=== PATIENT | female | born 1950 | race Two or more races ===

== ENCOUNTER 2020-11-10 01:41 | Inpatient (IN) | payer MEDICARE, MEDICAID ==
[~2020-11-10] VITALS: Ht 160 cm; Wt 68.0 kg
[~2020-11-10 01:41] MED LIST: PRILOSEC20 MG PO; VICODIN 5-5001 EACH PO
--- NOTE | 2020-11-10 02:00 | NUR ---
ED Nurse Note: patient came in ambulatory, AOx4, vitals stable, accompanied by family. Complaints of nausea, and abdominal pain, HX of gallbladder infections. Pt was informed to schedule surgery for removal but has not been able to sdchedule it yet
[2020-11-10 02:10] VITALS: BP 130/57
--- NOTE | 2020-11-10 02:10 | Emergency Room Report ---
History of Present Illness General Chief Complaint: Abdominal Pain Source: Patient Present Illness HPI 70-year-old female with history of hypertension, hyperlipidemia, cholelithiasis here with epigastric and right upper quadrant abdominal pain. Patient has had multiple bouts of biliary colic and read the recent past but pain is usually been controlled with [id number] pain medication. Patient has been taking Tylenol and Mylanta without any relief for the past several days. Pain is sharp in nature, located in the epigastric and right upper quadrant region, does not otherwise radiate. Patient has had vomiting and diarrhea for the past several days. No fevers, chills, chest pain, palpitations, shortness of breath, back pain, dysuria. Has vomited multiple times of the past few days nonbilious nonbloody. Allergies: Coded Allergies: No Known Allergies (Unverified , 09/26/12) COVID-19 Screening Contact w/high risk pt: No Experienced COVID-19 symptoms?: No COVID-19 Testing performed LINE REPAIRER TOWER: No Nursing Documentation-PMH Hx Hypertension: Yes Hx Gastrointestinal Problems: Yes - ULCER Review of Systems All Other Systems: negative except mentioned in HPI Physical Exam Vital Signs Date Time Temp Pulse Resp B/P (MAP) Pulse Ox O2 Delivery O2 Flow Rate FiO2 11/10/20 01:46 97.7 60 20 130/57 (81) 96 Room Air Sp02 EP Interpretation: reviewed, normal General Appearance: no apparent distress, alert, non-toxic Head: normocephalic, atraumatic Eyes: bilateral eye normal inspection, bilateral eye PERRL ENT: hearing grossly normal, normal pharynx, no angioedema, normal voice Neck: full range of motion, supple/symm/no masses Respiratory: chest non-tender, lungs clear, normal breath sounds, speaking full sentences Cardiovascular #1: regular rate, rhythm, no edema Cardiovascular #2: 2+ carotid (R), 2+ carotid (L), 2+ radial (R), 2+ radial (L), 2+ dorsalis pedis (R), 2+ dorsalis pedis (L) Gastrointestinal: normal bowel sounds, soft, non-distended, no guarding, no rebound, other - Epigastric and right upper quadrant tenderness on palpation. Negative Rovsing sign, negative Ruano sign Rectal: deferred Genitourinary: normal inspection, no CVA tenderness Musculoskeletal: back normal, normal range of motion, gait/station normal, non- tender Neurologic: alert, motor strength/tone normal, oriented x3, sensory intact, responsive, speech normal Psychiatric: judgement/insight normal, memory normal, mood/affect normal, no suicidal/homicidal ideation Lymphatic: no adenopathy Medical Decision Making Diagnostic Impression: Primary Impression: Cholecystitis ER Course EKG: NSR, no ischemia, intervals WNL. No ectopy. Rate 54 bpm Rhythm strip: patient monitored for arrhythmias - no malignant dysrhythmias, runs of PVCs, nor pauses noted Right upper quadrant ultrasound: Indication right upper quadrant abdominal pain. statistical technician report: Large obstructing gallstone. Gallbladder wall thickening and small amount of pericholecystic fluid. Normal CBD Laboratory Tests Test 11/10/20 02:11 White Blood Count 11.9 K/UL (4.8-10.8) H Red Blood Count 4.48 M/UL (4.20-5.40) Hemoglobin 12.7 G/DL (12.0-16.0) Hematocrit 39.2 % (37.0-47.0) Mean Corpuscular Volume 87 FL (80-99) Mean Corpuscular Hemoglobin 28.2 PG (27.0-31.0) Mean Corpuscular Hemoglobin Concent 32.3 G/DL (32.0-36.0) Red Cell Distribution Width 12.2 % (11.6-14.8) Platelet Count 212 K/UL (150-450) Mean Platelet Volume 7.9 FL (6.5-10.1) Neutrophils (%) (Auto) % (45.0-75.0) Lymphocytes (%) (Auto) % (20.0-45.0) Monocytes (%) (Auto) % (1.0-10.0) Eosinophils (%) (Auto) % (0.0-3.0) Basophils (%) (Auto) % (0.0-2.0) Urine Color Yellow Urine Appearance Clear Urine pH 8 (4.5-8.0) Urine Specific [place] 1.015 (1.005-1.035) Urine Protein 2+ (NEGATIVE) H Urine Glucose (UA) Negative (NEGATIVE) Urine Ketones 2+ (NEGATIVE) H Urine Blood 3+ (NEGATIVE) H Urine Nitrite Negative (NEGATIVE) Urine Bilirubin Negative (NEGATIVE) Urine Urobilinogen Normal MG/DL (0.0-1.0) Urine Leukocyte Esterase 1+ (NEGATIVE) H Urine RBC 2-4 /HPF (0 - 2) H Urine WBC 0-2 /HPF (0 - 2) Urine Squamous Epithelial Cells Few /LPF (NONE/OCC) Urine Bacteria Moderate /HPF (NONE) H Sodium Level 139 MMOL/L (136-145) Potassium Level 3.9 MMOL/L (3.5-5.1) Chloride Level 102 MMOL/L (98-107) Carbon Dioxide Level 28 MMOL/L (21-32) Anion Gap 9 mmol/L (5-15) Blood Urea Nitrogen 22 mg/dL (7-18) H Creatinine 1.0 MG/DL (0.55-1.30) Estimated Glomerular Filtration Rate 54.7 mL/min (>60) Glucose Level 188 MG/DL (74-106) H Calcium Level 9.7 MG/DL (8.5-10.1) Total Bilirubin 0.5 MG/DL (0.2-1.0) Aspartate Amino Transferase (AST) 20 U/L (15-37) Alanine Aminotransferase (ALT) 20 U/L (12-78) Alkaline Phosphatase 85 U/L (46-116) Troponin I 0.000 ng/mL (0.000-0.056) Total Protein 8.5 G/DL (6.4-8.2) H Albumin 4.1 G/DL (3.4-5.0) Globulin 4.4 g/dL Albumin/Globulin Ratio 0.9 (1.0-2.7) L Lipase 117 U/L (73-393) 70-year-old female with history of biliary colic here with worsening right upper quadrant abdominal pain. Patient normal vital signs in the emergency department. CBC revealed a leukocytosis of 11.9. She had normal LFTs and lipase. Urinalysis did show evidence of urinary tract infection. Right upper quadrant ultrasound showed a large obstructing stone and evidence of gallbladder wall thickening and some pericholecystic fluid. She had normal CBD diameter. Consistent with cholecystitis. She was given a dose of Zosyn in the emergency department. She received pain medication and felt much improved. Admitted to [facility]. Last Vital Signs Date Time Temp Pulse Resp B/P (MAP) Pulse Ox O2 Delivery O2 Flow Rate FiO2 11/10/20 01:46 97.7 60 20 130/57 (81) 96 Room Air Referrals: NON PHYSICIAN (PCP) Yvan Berman M.D. Nov 10, 2020 02:10
--- NOTE | 2020-11-10 02:11 | NUR ---
ED Nurse Note: blood and urine collected and sent to lab
[2020-11-10] MEDS ORDERED: Mylanta II UD 30ml ORAL ONE (02:15)
[2020-11-10] MEDS ORDERED: Lidocaine 2% Visc 15ml soln ORAL ONE (02:15)
[2020-11-10] MEDS ORDERED: Dicyclomine HCl 10mg/5ml oral soln ORAL ONE (02:15)
[2020-11-10 02:38] LABS: APPEARANCE,URINE CLEAR; BILIRUBIN, URINE NEGATIVE (NEGATIVE); GLUCOSE, URINE (UA) NEGATIVE (NEGATIVE); HEMATOCRIT 39.2 % (37.0-47.0); HEMOGLOBIN 12.7 G/DL (12.0-16.0); KETONES,URINE 2+ (NEGATIVE); LEUKOCYTE ESTERASE ,URINE 1+ (NEGATIVE); MEAN CORPUSCULAR VOLUME 87 FL (80-99); NITRITE,URINE NEGATIVE (NEGATIVE); PH,URINE 8 (4.5-8.0); PLATELET COUNT 212 K/UL (150-450); PROTEIN,URINE 2+ (NEGATIVE); RED BLOOD COUNT 4.48 M/UL (4.20-5.40); RED CELL DISTRIBUTION WIDTH 12.2 % (11.6-14.8); UROBILINOGEN,URINE NORMAL MG/DL (0.0-1.0); WHITE BLOOD COUNT 11.9 K/UL (4.8-10.8)
[2020-11-10 02:42] LABS: COLOR,URINE YELLOW
[2020-11-10 02:52] LABS: ALBUMIN 4.1 G/DL (3.4-5.0); ALBUMIN/GLOBULIN RATIO 0.9 (1.0-2.7); BILIRUBIN,TOTAL 0.5 MG/DL (0.2-1.0); CALCIUM 9.7 MG/DL (8.5-10.1); POTASSIUM 3.9 MMOL/L (3.5-5.1)
[2020-11-10] MEDS ORDERED: Piperacillin/Tazobactam 3.375 GM in NS 110 ML IVPB ONE (03:45)
--- NOTE | 2020-11-10 03:53 | Diagnostic Imaging Report ---
ADDENDUM - Added by Elizabeth Warner MD on 11/10/2020 3:56 AM (-08:00) EXAM: US Abdomen Complete CLINICAL HISTORY: PAIN TECHNIQUE: Real-time ultrasound of the abdomen with image documentation. COMPARISON: 2011 FINDINGS: Liver: No mass. No intrahepatic bile duct dilation. Gallbladder: Multiple small gallstones in the neck. Minimal wall thickening to 3.7 mm. No pericholecystic fluid. Negative Ruano's sign. Common bile duct: No stones. No dilation. Pancreas: Obscured. Kidneys: No stones. No solid mass. No hydronephrosis. Spleen: Unremarkable. Aorta: Not evaluated. Inferior vena cava: Not evaluated. IMPRESSION: Multiple small gallstones in the neck. Minimal wall thickening to 3.7 mm. No pericholecystic fluid. Negative Ruano's sign. EXAM: US Abdomen Complete CLINICAL HISTORY: PAIN TECHNIQUE: Real-time ultrasound of the abdomen with image documentation. COMPARISON: 2011 FINDINGS: Liver: No mass. No intrahepatic bile duct dilation. Gallbladder: Multiple small gallstones in the neck. Minimal wall thickening to 3.7 mm. No pericholecystic fluid. Negative Ruano's sign. Common bile duct: No stones. No dilation. Pancreas: Obscured. Kidneys: No stones. No solid mass. No hydronephrosis. Spleen: Unremarkable. Aorta: No aneurysm. Inferior vena cava: Unremarkable.
[2020-11-10 04:18] VITALS: BP 136/61
--- NOTE | 2020-11-10 04:50 | NUR ---
HAND-OFF: Report given to
--- NOTE | 2020-11-10 04:51 | NUR ---
TRANSFER TO FLOOR: Patient transferred to 415 as ordered, per MD . Report given to Tatyana. Belongings and medications given to Elly Machado. Family and or S/O informed of transfer.
--- NOTE | 2020-11-10 05:50 | NUR ---
NURSE NOTES: Admitted patient awake, alert, verbal, ambulatory, with stable vital signs. Awaiting orders from Dr. Ventura.
--- NOTE | 2020-11-10 07:06 | NUR ---
NURSE HAND-OFF: Important Events on Shift:[]Awaiting admitting orders Patient Status: [] Diet: [] Pending Orders: [] Pending Results/Labs:[] Pending MD notification:[] Latest Vital Signs: Temperature 97.8 , Pulse 62 , B/P 136 /61 , Respiratory Rate 20 , O2 SAT 96 , Room Air, O2 Flow Rate . Vital Sign Comment: [] Latest Martinez Fall Score: 35 Fall Risk: Medium Risk Safety Measures: Call light Within Reach, Bed Alarm Zone 2, Side Rails Side Rails x2, Bed position Low and Locked. Fall Precautions: Yellow Socks Report given to [].
--- NOTE | 2020-11-10 07:15 | NUR ---
NURSE NOTES: Received report from Beverley WOLF. Patient is awake, A&O x4, [place] speaking, no acute distress. Patient reports no pain. Received orders from Dr. Ventura, patient NPO except meds. IV asymptomatic and patent. On room air, no Sob. Call light in reach, bed alarm on, side rails up, bed in lowest position.
[2020-11-10 08:00] VITALS: BP 118/53
--- NOTE | 2020-11-10 08:53 | Consultation ---
History of Present Illness General Date patient seen: Nov 10, 2020 Chief Complaint: Present Illness Allergies: Coded Allergies: No Known Allergies (Unverified , 09/26/12) Medication History Scheduled Hydrocodone/Acetaminophen 5-500 (Vicodin 5-500), 1-2 TAB PO Q6H Omeprazole (Prilosec), 20 MG PO DAILY Patient History Healthcare decision maker Resuscitation status Advanced Directive on File Physical Exam Last 24 Hour Vital Signs Date Time Temp Pulse Resp B/P (MAP) Pulse Ox O2 Delivery O2 Flow Rate FiO2 11/10/20 05:05 Room Air 11/10/20 04:18 97.8 62 20 136/61 96 Room Air 11/10/20 02:10 97.7 20 130/57 96 Room Air 11/10/20 01:46 97.7 60 20 130/57 (81) 96 Room Air Intake and Output 11/09/20 11/10/20 19:00 07:00 Intake Total 0 ml Balance 0 ml Intake Oral 0 ml # Voids 2 # Bowel Movements 1 Laboratory Tests Test 11/10/20 02:11 White Blood Count 11.9 K/UL (4.8-10.8) H Red Blood Count 4.48 M/UL (4.20-5.40) Hemoglobin 12.7 G/DL (12.0-16.0) Hematocrit 39.2 % (37.0-47.0) Mean Corpuscular Volume 87 FL (80-99) Mean Corpuscular Hemoglobin 28.2 PG (27.0-31.0) Mean Corpuscular Hemoglobin Concent 32.3 G/DL (32.0-36.0) Red Cell Distribution Width 12.2 % (11.6-14.8) Platelet Count 212 K/UL (150-450) Mean Platelet Volume 7.9 FL (6.5-10.1) Neutrophils (%) (Auto) % (45.0-75.0) Lymphocytes (%) (Auto) % (20.0-45.0) Monocytes (%) (Auto) % (1.0-10.0) Eosinophils (%) (Auto) % (0.0-3.0) Basophils (%) (Auto) % (0.0-2.0) Urine Color Yellow Urine Appearance Clear Urine pH 8 (4.5-8.0) Urine Specific [place] 1.015 (1.005-1.035) Urine Protein 2+ (NEGATIVE) H Urine Glucose (UA) Negative (NEGATIVE) Urine Ketones 2+ (NEGATIVE) H Urine Blood 3+ (NEGATIVE) H Urine Nitrite Negative (NEGATIVE) Urine Bilirubin Negative (NEGATIVE) Urine Urobilinogen Normal MG/DL (0.0-1.0) Urine Leukocyte Esterase 1+ (NEGATIVE) H Urine RBC 2-4 /HPF (0 - 2) H Urine WBC 0-2 /HPF (0 - 2) Urine Squamous Epithelial Cells Few /LPF (NONE/OCC) Urine Bacteria Moderate /HPF (NONE) H Sodium Level 139 MMOL/L (136-145) Potassium Level 3.9 MMOL/L (3.5-5.1) Chloride Level 102 MMOL/L (98-107) Carbon Dioxide Level 28 MMOL/L (21-32) Anion Gap 9 mmol/L (5-15) Blood Urea Nitrogen 22 mg/dL (7-18) H Creatinine 1.0 MG/DL (0.55-1.30) Estimat Glomerular Filtration Rate 54.7 mL/min (>60) Glucose Level 188 MG/DL (74-106) H Calcium Level 9.7 MG/DL (8.5-10.1) Total Bilirubin 0.5 MG/DL (0.2-1.0) Aspartate Amino Transf (AST/SGOT) 20 U/L (15-37) Alanine Aminotransferase (ALT/SGPT) 20 U/L (12-78) Alkaline Phosphatase 85 U/L (46-116) Troponin I 0.000 ng/mL (0.000-0.056) Total Protein 8.5 G/DL (6.4-8.2) H Albumin 4.1 G/DL (3.4-5.0) Globulin 4.4 g/dL Albumin/Globulin Ratio 0.9 (1.0-2.7) L Lipase 117 U/L (73-393) Height (Feet): 5 Height (Inches): 3.00 Weight (Pounds): 150 Medications Current Medications Medications (Trade) Dose Ordered Sig/Ramy Route PRN Reason Start Time Stop Time Status Last Admin Dose Admin Acetaminophen (Tylenol) 500 mg Q4H PRN ORAL Mild Pain (Pain Scale 1-3) 11/10/20 09:00 12/10/20 08:59 UNV Assessment/Plan Assessment/Plan: (1) Abdominal pain (2) Cholecystitis (2) Gall stone Seen dictated David Lopez Nov 10, 2020 08:52
--- NOTE | 2020-11-10 09:05 | NUR ---
CASE MANAGEMENT:REVIEW 70 YR OLD FEMALE WALKED INTO ER CC: ABDOMINAL PAIN AND VOMITING SI: CHOLECYSTITIS 97.7 60 20 130/57 96% ON RA WBC+11.9 BUN+22 GLUCOSE+188 IS: 1L NS BOLUS IV ZOSYN IV ZOFRAN X1 GI COCKTAIL ABD US URINE CX : TO MED/SURG 4 EAST DCP: FROM HOME
--- NOTE | 2020-11-10 11:47 | Consultation ---
DATE OF CONSULTATION: 11/10/2020 CHIEF COMPLAINT: Abdominal pain. HISTORY OF PRESENT ILLNESS: This is a 70-year-old female presented to the hospital with complaint of epigastric abdominal pain. In the ER, the patient had abdominal ultrasound which showed evidence of gallstones, some gallbladder wall thickening suspicious for cholecystitis. PAST MEDICAL HISTORY: 1. Hypertension. 2. Hyperlipidemia. 3. Gallstones. 4. History of gastric ulcer. PAST SURGICAL HISTORY: None. ALLERGIES: No known drug allergies. MEDICATIONS: Please see medication reconciliation list. SOCIAL HISTORY: The patient denies any tobacco, alcohol, or drug abuse. FAMILY HISTORY: Noncontributory. REVIEW OF SYSTEMS: Consistent with epigastric abdominal pain with some nausea. PHYSICAL EXAMINATION: VITAL SIGNS: Temperature is 97.8, pule 62, respirations 20, blood pressure is 132/61. HEENT: Normocephalic and atraumatic. Sclerae anicteric. NECK: Supple. No evidence of obvious lymphadenopathy. CARDIOVASCULAR: Regular rate and rhythm. Plus S1-S2. LUNGS: Clear to auscultation bilaterally. ABDOMEN: Positive bowel sounds. Soft. There is minimal tenderness to palpation in the epigastric area. No rebound. No guarding No peritoneal sign. EXTREMITIES: No cyanosis, no clubbing, no edema. LABORATORY AND DIAGNOSTIC DATA: White count is 11.9, hemoglobin 12, hematocrit 39, platelet count is 212. Liver function grossly normal. ASSESSMENT AND PLAN: This is a 70-year-old female with epigastric abdominal pain, normal LFTs. Ultrasound showed evidence of gallstones, positive for gallstones causing abdominal pain. Plan to order HIDA scan. The patient is currently on antibiotics, Zosyn, we will continue. The patient needs surgical evaluation. I want to thank, Dr. Renetta Ventura for this kind referral. Donavan Brian M.D. DR: Chuy JOB#: [id number] CC: Renetta Ventura M.D.; Fax#: [phone]
[2020-11-10 12:00] VITALS: BP 120/63
[2020-11-10] MEDS ORDERED: Morphine Sulfate 2mg/ml Inj(IV/IM USE ONLY) IVP PRN (12:00)
--- NOTE | 2020-11-10 13:14 | Consultation ---
DATE OF CONSULTATION: 11/10/2020 PAIN MANAGEMENT CONSULTATION CONSULTING PHYSICIAN: Nu Rodriguez MD. REFERRING PHYSICIAN: Renetta Ventura MD. PHYSICIAN GYROSCOPIC INSTRUMENT MECHANIC: AYAH Mcgrath. CHIEF COMPLAINT: Abdominal pain. HISTORY OF PRESENT ILLNESS: This is a 70-year-old female, who is being seen on the Med/Surg floor of [facility] for initial pain management consultation. The patient was admitted under the care of Dr. Ventura due to complaints of abdominal pain, found to have cholelithiasis, biliary colic, which was uncontrolled with Tylenol and Mylanta at home, and was found to have a large gallstone and diagnosed with cholecystitis. At this time, the patient is comfortable in the bed, rating the pain at 2/10, waiting to be seen by surgeon and assistant technician. We were consulted so the patient would have adequate pain control while here in the hospital. PAST MEDICAL HISTORY: Hypertension, hyperlipidemia, stomach ulcers. SOCIAL HISTORY: No smoking tobacco, drinking alcohol, and IV drug abuse. ALLERGIES: No known drug allergies. MEDICATIONS: [place] and Prilosec. REVIEW OF SYSTEMS: Denies rash, fever, chills, sweating, dizziness, drowsiness, sore throat, or change in weight. No shortness of breath or chest pain. No nausea, vomiting, diarrhea, or blood in the stool. No dysuria. PHYSICAL EXAMINATION: GENERAL: Alert, awake, and oriented. VITAL SIGNS: Blood pressure 132/61, heart rate 62, oxygen saturation 96%, respirations 20, temperature 97.8 degrees Fahrenheit. HEENT: PERRLA. NECK: Range of motion is full in all directions. No tenderness to paracervical muscles. No adenopathy. LUNGS: Decreased breath sounds bilaterally. HEART: S1 and S2, regular. ABDOMEN: Tenderness to palpation. BACK: Range of motion is decreased in flexion and extension. EXTREMITIES: Upper and lower extremity range of motion is full in all directions. No cyanosis. No clubbing. No edema. Sensory is intact. Reflexes are not obtainable. No adenopathy. ASSESSMENT AND PLAN: This is a 70-year-old female with abdominal pain, cholecystitis, and gallstone. The patient will be started on Tylenol 500 mg tablet every 4 hours as needed for severe pain. The patient was discussed with Dr. Rodriguez and Dr. Rodriguez concurred. We will follow up with the patient. Thank you very much for the courtesy of this consultation. Nu Rodriguez M.D. AYAH Mcgrath DR: BARB JOB#: [id number] CC:
[2020-11-10] MEDS: Acetaminophen 500mg (ES) tab ORAL PRN (14:16)
--- NOTE | 2020-11-10 14:50 | Consultation ---
History of Present Illness General Date patient seen: Nov 10, 2020 Reason for Hospitalization: Abdominal Pain Present Illness HPI This is a pleasant 70-year-old female with history of hypertension, hyperlipidemia, cholelithiasis who presented with epigastric and right upper quadrant abdominal pain which is near generalized abd pain to her. Patient has had multiple bouts of biliary colic and read the recent past but pain is usually been controlled with [id number] pain medication. Patient has been taking Tylenol and Mylanta without any relief for the past several days. Pain is sharp in nature, located in the epigastric and right upper quadrant region, does not otherwise radiate. Patient has had vomiting and diarrhea for the past several days. No fevers, chills, chest pain, palpitations, shortness of breath, back pain, dysuria. Has vomited multiple times of the past few days nonbilious nonbloody. states almost 10 days of symptoms. wbc 11k. lft's okay. surgery called to evaluate Allergies: Coded Allergies: No Known Allergies (Unverified , 09/26/12) COVID-19 Screening Contact w/high risk pt: No Experienced COVID-19 symptoms?: No Medication History Scheduled Hydrocodone/Acetaminophen 5-500 (Vicodin 5-500), 1-2 TAB PO Q6H Omeprazole (Prilosec), 20 MG PO DAILY Patient History History Provided By: Patient, Medical Record, PMD Healthcare decision maker Resuscitation status Advanced Directive on File Past Medical/Surgical History Past Medical/Surgical History: (1) Cholecystitis Review of Systems Review of Symptoms General ROS: no weight loss or fever Psychological ROS: no depression or mood changes, no memory loss Ophthalmic ROS: no visual changes or eye irritation ENT ROS: no nasal congestion, hearing loss, dizziness Allergy and Immunology ROS: no allergic symptoms or urticaria Hematological and Lymphatic ROS: no swollen glands, unusual bleeding or bruising Endocrine ROS: no polyuria, polydipsia, weight changes, temperature intolerance Respiratory ROS: no cough, shortness of breath, or wheezing Cardiovascular ROS: no chest pain or dyspnea on exertion Gastrointestinal ROS: + abdominal pain, bright red blood in stool. Musculoskeletal ROS: no myalgias or arthralgias Neurological ROS: no TIA or stroke symptoms Dermatological ROS: no new or changing skin lesions, rashes or pruritis Physical Exam Physical Exam General appearance: alert, cooperative, no distress, appears stated age Head: Normocephalic, without obvious abnormality, atraumatic Eyes: conjunctivae/corneas clear. PERRL, EOM's intact. Fundi benign Throat: Lips, mucosa, and tongue normal. Teeth and gums normal Neck: supple, symmetrical, trachea midline, no adenopathy, thyroid: not enlarged, symmetric, no tenderness/mass/nodules, no carotid bruit and no JVD Lungs: clear to auscultation bilaterally Heart: regular rate and rhythm, S1, S2 normal, no murmur, click, rub or gallop Abdomen: soft, non-tender. Bowel sounds normal. No masses, no organomegaly Extremities: extremities normal, atraumatic, no cyanosis or edema Pulses: 2+ and symmetric Skin: Skin color, texture, turgor normal. No rashes or lesions Neurologic: Grossly normal Last 24 Hour Vital Signs Date Time Temp Pulse Resp B/P (MAP) Pulse Ox O2 Delivery O2 Flow Rate FiO2 11/10/20 12:00 98.8 87 20 120/63 (82) 97 11/10/20 09:00 Room Air 11/10/20 08:00 96.6 75 21 118/53 (74) 96 11/10/20 05:05 Room Air 11/10/20 04:18 97.8 62 20 136/61 96 Room Air 11/10/20 02:10 97.7 20 130/57 96 Room Air 11/10/20 01:46 97.7 60 20 130/57 (81) 96 Room Air Intake and Output 11/09/20 11/10/20 19:00 07:00 Intake Total 0 ml Balance 0 ml Intake Oral 0 ml # Voids 2 # Bowel Movements 1 Laboratory Tests Test 11/10/20 02:11 White Blood Count 11.9 K/UL (4.8-10.8) H Red Blood Count 4.48 M/UL (4.20-5.40) Hemoglobin 12.7 G/DL (12.0-16.0) Hematocrit 39.2 % (37.0-47.0) Mean Corpuscular Volume 87 FL (80-99) Mean Corpuscular Hemoglobin 28.2 PG (27.0-31.0) Mean Corpuscular Hemoglobin Concent 32.3 G/DL (32.0-36.0) Red Cell Distribution Width 12.2 % (11.6-14.8) Platelet Count 212 K/UL (150-450) Mean Platelet Volume 7.9 FL (6.5-10.1) Neutrophils (%) (Auto) % (45.0-75.0) Lymphocytes (%) (Auto) % (20.0-45.0) Monocytes (%) (Auto) % (1.0-10.0) Eosinophils (%) (Auto) % (0.0-3.0) Basophils (%) (Auto) % (0.0-2.0) Urine Color Yellow Urine Appearance Clear Urine pH 8 (4.5-8.0) Urine Specific [place] 1.015 (1.005-1.035) Urine Protein 2+ (NEGATIVE) H Urine Glucose (UA) Negative (NEGATIVE) Urine Ketones 2+ (NEGATIVE) H Urine Blood 3+ (NEGATIVE) H Urine Nitrite Negative (NEGATIVE) Urine Bilirubin Negative (NEGATIVE) Urine Urobilinogen Normal MG/DL (0.0-1.0) Urine Leukocyte Esterase 1+ (NEGATIVE) H Urine RBC 2-4 /HPF (0 - 2) H Urine WBC 0-2 /HPF (0 - 2) Urine Squamous Epithelial Cells Few /LPF (NONE/OCC) Urine Bacteria Moderate /HPF (NONE) H Sodium Level 139 MMOL/L (136-145) Potassium Level 3.9 MMOL/L (3.5-5.1) Chloride Level 102 MMOL/L (98-107) Carbon Dioxide Level 28 MMOL/L (21-32) Anion Gap 9 mmol/L (5-15) Blood Urea Nitrogen 22 mg/dL (7-18) H Creatinine 1.0 MG/DL (0.55-1.30) Estimat Glomerular Filtration Rate 54.7 mL/min (>60) Glucose Level 188 MG/DL (74-106) H Calcium Level 9.7 MG/DL (8.5-10.1) Total Bilirubin 0.5 MG/DL (0.2-1.0) Aspartate Amino Transf (AST/SGOT) 20 U/L (15-37) Alanine Aminotransferase (ALT/SGPT) 20 U/L (12-78) Alkaline Phosphatase 85 U/L (46-116) Troponin I 0.000 ng/mL (0.000-0.056) Total Protein 8.5 G/DL (6.4-8.2) H Albumin 4.1 G/DL (3.4-5.0) Globulin 4.4 g/dL Albumin/Globulin Ratio 0.9 (1.0-2.7) L Lipase 117 U/L (73-393) Height (Feet): 5 Height (Inches): 3.00 Weight (Pounds): 150 Medications Current Medications Medications (Trade) Dose Ordered Sig/Ramy Route PRN Reason Start Time Stop Time Status Last Admin Dose Admin Acetaminophen (Tylenol) 500 mg Q4H PRN ORAL Mild Pain (Pain Scale 1-3) 11/10/20 09:00 12/10/20 08:59 11/10/20 14:16 Ondansetron HCl (Zofran) 4 mg Q6H PRN IVP Nausea & Vomiting 11/10/20 09:00 12/10/20 08:59 Sodium Chloride 1,000 ml @ 60 mls/hr [id number] IV 11/10/20 09:00 12/10/20 08:59 11/10/20 09:37 Assessment/Plan Problem List: (1) Cholecystitis ICD Codes: K81.9 - Cholecystitis, unspecified SNOMED: [id number] (2) Abdominal pain Assessment & Plan: This is a 70-year-old female presenting with abdominal pain. States she has a history of biliary colic in the past and potential regino cystitis but has not had her gallbladder taken out. States she has epigastric upper quadrant and almost generalized abdominal pain for few days near 10 days now not getting better as it usually does on its own. History of exploratory laparotomy for a colonoscopy bowel perforation. Now states feels little bit better but still would like her gallbladder taken out potentially. Ultrasound reviewed cholelithiasis no pericholecystic fluid minimal wall thickening. No Ruano's. HIDA ordered and pending. Abdominal exam fairly benign. No acute surgical invention planned. Will await HIDA results. Will follow with examination and recommendations. Thank you Liver: No mass. No intrahepatic bile duct dilation. Gallbladder: Multiple small gallstones in the neck. Minimal wall thickening to 3.7 mm. No pericholecystic fluid. Negative Ruano's sign. Common bile duct: No stones. No dilation. Pancreas: Obscured. Kidneys: No stones. No solid mass. No hydronephrosis. Spleen: Unremarkable. Aorta: Not evaluated. Inferior vena cava: Not evaluated. IMPRESSION: Multiple small gallstones in the neck. Minimal wall thickening to 3.7 mm. No pericholecystic fluid. Negative Ruano's sign. ICD Codes: R10.9 - Unspecified abdominal pain SNOMED: [id number] Dhaval Collins Nov 10, 2020 14:50
--- NOTE | 2020-11-10 15:54 | Diagnostic Imaging Report ---
Indication: Reason For Exam: SCREEN Technique: Grayscale and duplex images of the bilateral lower extremity veins Comparison: None Findings: Bilaterally, grayscale and duplex images demonstrate no evidence of intraluminal thrombus. Normal phasic Doppler waveforms, demonstrating normal augmentation response and no evidence of valvular insufficiency. Greater saphenous vein(s) and tibial veins are patent. Normal compressibility. Impression: Negative for evidence of lower extremity deep venous thrombosis bilaterally
--- NOTE | 2020-11-10 15:57 | Diagnostic Imaging Report ---
Indications: Abdominal pain Technique: IV administration 6.3 mCi 99 M technetium Choletec. Serial images obtained over the abdomen for one hour Comparison: Abdominal sonogram of earlier the same day Findings: Prompt tracer uptake within the liver. Extrahepatic bile ducts are seen at for minutes. Excretion into the duodenum demonstrated at 19 minutes. Gallbladder visualized at 13 minutes. Impression: Negative
[2020-11-10 16:00] VITALS: BP 122/73
--- NOTE | 2020-11-10 16:59 | Consultation ---
DATE OF CONSULTATION: 11/10/2020 INFECTIOUS DISEASE CONSULT PRIMARY ATTENDING PHYSICIAN: Renetta Ventura M.D. REASON FOR CONSULT: Cholecystitis. HISTORY OF PRESENT ILLNESS: This is a 70-year-old female admitted today from home complaining of epigastric right upper quadrant pain. The patient has history of cholelithiasis and biliary colic and previously seen in [facility] in September 2012 because of biliary colic. PAST MEDICAL HISTORY: Significant for hypertension, hyperlipidemia, cholelithiasis. ALLERGIES: No known drug allergy. MEDICATIONS: Started on Zosyn, Zofran, sodium chloride, and Tylenol. SOCIAL HISTORY: , has 8 kids. No history of alcohol, drug abuse, or smoking. REVIEW OF SYSTEMS: No fever. No chills. No nausea. No vomiting. Abdominal pain at the present time is controlled. PHYSICAL EXAMINATION: VITAL SIGNS: Temperature is 98.8, pulse 87, blood pressure 120/63. GENERAL APPEARANCE: Seems to have normal weight. HEAD AND NECK: [place] conjunctivae. HEART: Normal rate. LUNGS: Clear. ABDOMEN: Soft, flat. EXTREMITIES: No edema. NEUROLOGIC: She is awake, alert, oriented x3. LABORATORY AND DIAGNOSTIC DATA: WBC 11.9, hemoglobin 12.7, hematocrit 39.2, platelets are 212. Sodium 139, potassium 3.9, chloride 102, bicarb 28, BUN 22, creatinine 1, glucose is 188. Abdominal ultrasound showed multiple small gallstones in the neck of the gallbladder, minimal wall thickening. Ruano sign was negative. IMPRESSION: Acute cholecystitis. The patient has a history of previous bouts of biliary colic and cholelithiasis. May have also chronic cholecystitis. Has hypertension hyperlipidemia. RECOMMENDATION: Continue with Zosyn. We will have a HIDA scan that was suggested by the surgeon. At the end of my exam, I thank Dr. Ventura for involving me in the care of this patient. Donavan Acharya M.D. DR: [place] JOB#: [id number] CC: GRACE
[2020-11-10] MEDS: Piperacillin/Tazobactam 3.375 GM in NS 110 ML IVPB SCH (17:13)
--- NOTE | 2020-11-10 19:20 | NUR ---
NURSE HAND-OFF: Important Events on Shift:[Nuclear scan done, negative ] Patient Status: [stable] Diet: [soft; NPO at midnight for CT abd pelvis WO contrast ] Pending Orders: [] Pending Results/Labs:[] Pending MD notification:[] Latest Vital Signs: Temperature 96.6 , Pulse 78 , B/P 122 /73 , Respiratory Rate 21 , O2 SAT 96 , Room Air, O2 Flow Rate . Vital Sign Comment: [] Latest Martinez Fall Score: 35 Fall Risk: Medium Risk Safety Measures: Call light Within Reach, Bed Alarm Zone 1, Side Rails Side Rails x3, Bed position Low and Locked. Fall Precautions: Yellow Socks Patient Fall Education Report given to [Alysha WOLF].
--- NOTE | 2020-11-10 19:30 | NUR ---
NURSE NOTES: Received patient in no apparent distress. A&OX4. IV site patent and intact. Remind patient NPO midnight, patient fully understood. Bed in lowest position. Call light within reach. Will continue to monitor.
[2020-11-10 20:00] VITALS: BP 118/55
--- NOTE | 2020-11-10 22:44 | History and Physical Report ---
DATE OF ADMISSION: 11/10/2020 The patient comes in because of vomiting, diarrhea, abdominal pain for 2 days, had fever, chills as well. The patient has history of exploratory laparotomy due to ruptured colon after colonoscopy years ago. The patient is found on the ultrasound to have large obstructing stone and gallbladder wall thickening as well as pericystic fluid, admitted for cholecystitis, abdominal pain, vomiting, diarrhea, and was also found to have UTI. The patient denies shortness of breath. Denies cough. Denies chest pain. Denies orthopnea. Denies rectal bleeding. PAST MEDICAL HISTORY: Hypertension, history of peptic ulcer disease, history of ruptured colon. PAST SURGICAL HISTORY: Status post laparotomy. FAMILY HISTORY: Noncontributory. SOCIAL HISTORY: Denies smoking. No history of drug abuse. Denies history of alcohol abuse. Lives at home with spouse. ALLERGIES: No known allergies. MEDICATIONS: Omeprazole 20 mg daily. REVIEW OF SYSTEMS: HEENT: Denies headaches. RESPIRATORY: Denies shortness of breath. Denies cough. CARDIOVASCULAR: Denies chest pain or orthopnea. GASTROINTESTINAL: Reports vomiting, diarrhea, abdominal pain for 2 days. No rectal bleeding. EXTREMITIES: Denies pain in lower extremities. CENTRAL NERVOUS SYSTEM: Denies change is speech pattern. Feels weak. PHYSICAL EXAMINATION: VITAL SIGNS: Temperature is 96.6, pulse is 75, blood pressure is 118/53. HEENT: PERRLA. NECK: Supple. No lymphadenopathy. CHEST: Clear to auscultation. CARDIOVASCULAR: Regular rate and rhythm. No murmurs or extra sounds. GASTROINTESTINAL: Epigastric and right upper quadrant tenderness. No rebound. Abdomen is soft. Positive bowel sounds. No organomegaly. EXTREMITIES: No edema. Reflexes on both sides. Moves all four extremities. Motor is intact in all four extremities. LABORATORY DATA: WBC of 11.9, hemoglobin 12.7, platelets of 212. Sodium 139, potassium 3.9, BUN of 22, creatinine 1. ASSESSMENT AND PLAN: Cholecystitis, abdominal pain, vomiting, diarrhea, UTI. I have asked basically Dr. Brian, Dr. Donavan Acharya, Dr. Rodriguez, and Dr. Collins to see the patient for the and pain management as well as acute cholecystitis as well as for abdominal pain and vomiting and diarrhea. Antibiotics per Dr. Donavan Acharya. If surgery is needed for cholecystectomy, we will defer that to Dr. Collins who has been already consulted. Renetta Ventura M.D. DR: JULIETA JOB#: [id number] CC:
[2020-11-11] VITALS: BP 112/51
--- NOTE | 2020-11-11 02:24 | Cardiology Report ---
APPROVED REPORT EKG Measurement Heart [id number] <Conclusion> Sinus bradycardia Otherwise normal ECG
[2020-11-11 04:00] VITALS: BP 118/51
[2020-11-11] MEDS: Piperacillin/Tazobactam 3.375 GM in NS 110 ML IVPB SCH ×3 (05:36→21:39)
[2020-11-11 08:00] VITALS: BP 125/57
--- NOTE | 2020-11-11 08:00 | NUR ---
NURSE NOTES: RN received report from Paige and patient in bed aao X4. Patient does not show s/s of respiratory distress on room air or pain. Bed in lowest position and locked. Call light within reach. Will continue to monitor.
--- NOTE | 2020-11-11 08:08 | NUR ---
NURSE HAND-OFF: Important Events on Shift: Kept NPO midnight Patient Status: Diet: NPO Pending Orders: Pending Results/Labs: Pending MD notification: Latest Vital Signs: Temperature 98.1 , Pulse 52 , B/P 118 /51 , Respiratory Rate 16 , O2 SAT 96 , Room Air, O2 Flow Rate . Vital Sign Comment: Latest Martinez Fall Score: 35 Fall Risk: Medium Risk Safety Measures: Call light Within Reach, Bed Alarm Zone 1, Side Rails Side Rails x3, Bed position Low and Locked. Fall Precautions: Yellow Socks Patient Fall Education Report given to Tamia WOLF.
--- NOTE | 2020-11-11 08:33 | General Progress Note ---
Subjective Date patient seen: Nov 11, 2020 Time patient seen: 07:15 - am Allergies: Coded Allergies: No Known Allergies (Unverified , 09/26/12) Subjective HISTORY OF PRESENT ILLNESS: This is a 70-year-old female, who is being seen on the Med/Surg floor of [facility]. Patient in bed no signs of pain or distress. No new complaints at this time. REVIEW OF SYSTEMS: Denies rash, fever, chills, sweating, dizziness, drowsiness, sore throat, or change in weight. No shortness of breath or chest pain. No nausea, vomiting, diarrhea, or blood in the stool. No dysuria. Objective Last 24 Hour Vital Signs Date Time Temp Pulse Resp B/P (MAP) Pulse Ox O2 Delivery O2 Flow Rate FiO2 11/11/20 04:00 98.1 52 16 118/51 (73) 96 11/11/20 00:00 98.2 53 16 112/51 (71) 97 11/10/20 21:00 Room Air 11/10/20 20:00 97.8 51 16 118/55 (76) 96 11/10/20 16:00 96.6 78 21 122/73 (89) 96 11/10/20 12:00 98.8 87 20 120/63 (82) 97 11/10/20 09:00 Room Air Intake and Output 11/10/20 11/11/20 19:00 07:00 Intake Total 200 ml 567.5 ml Output Total 1200 ml Balance -1000 ml 567.5 ml Intake Oral 140 ml IV Total 60 ml 567.5 ml Output Urine Total 1200 ml # Voids 3 2 Height (Feet): 5 Height (Inches): 3.00 Weight (Pounds): 150 Objective PHYSICAL EXAMINATION: GENERAL: Alert, awake, and oriented. LUNGS: Decreased breath sounds bilaterally. HEART: S1 and S2, regular. ABDOMEN: Tenderness to palpation. EXTREMITIES: No cyanosis. No clubbing. No edema. NEURO: No changes. Assessment/Plan Assessment/Plan: (1) Abdominal pain (2) Cholecystitis (2) Gall stone Patient to be continued on Tylenol D/w Dr. Rodriguez and he concurred. David Lopez Nov 11, 2020 08:33
[2020-11-11 10:19] LABS: BASOPHILS % (AUTO) 0.7 % (0.0-2.0); EOSINOPHILS % (AUTO) 1.3 % (0.0-3.0); HEMATOCRIT 34.7 % (37.0-47.0); HEMOGLOBIN 11.3 G/DL (12.0-16.0); LYMPHOCYTES % (AUTO) 27.4 % (20.0-45.0); MEAN CORPUSCULAR VOLUME 90 FL (80-99); MONOCYTES % (AUTO) 5.9 % (1.0-10.0); NEUTROPHILS % (AUTO) 64.6 % (45.0-75.0); PLATELET COUNT 168 K/UL (150-450); RED BLOOD COUNT 3.86 M/UL (4.20-5.40); RED CELL DISTRIBUTION WIDTH 12.6 % (11.6-14.8); WHITE BLOOD COUNT 4.7 K/UL (4.8-10.8)
[2020-11-11 10:39] LABS: ALANINE AMINOTRANSFERASE 18 U/L (12-78); ALBUMIN 3.2 G/DL (3.4-5.0); ALBUMIN/GLOBULIN RATIO 0.8 (1.0-2.7); ALKALINE PHOSPHATASE 68 U/L (46-116); ANION GAP 7 mmol/L (5-15); ASPARTATE AMINO TRANSFERASE 17 U/L (15-37); BILIRUBIN,TOTAL 0.4 MG/DL (0.2-1.0); BLOOD UREA NITROGEN 16 mg/dL (7-18); CALCIUM 8.3 MG/DL (8.5-10.1); CARBON DIOXIDE 27 MMOL/L (21-32); CHLORIDE 111 MMOL/L (98-107); CREATININE 0.8 MG/DL (0.55-1.30); POTASSIUM 4.1 MMOL/L (3.5-5.1); SODIUM 145 MMOL/L (136-145)
--- NOTE | 2020-11-11 11:30 | NUR ---
NURSE NOTES: Patient came back from CT scan. Patient stable, aao x4. No s/s of respiratory distress pain noted. Call light within reach, bed in lowest position and locked. Will continue to monitor.
--- NOTE | 2020-11-11 11:31 | General Progress Note ---
Subjective ROS Limited/Unobtainable: Yes Allergies: Coded Allergies: No Known Allergies (Unverified , 09/26/12) Objective Last 24 Hour Vital Signs Date Time Temp Pulse Resp B/P (MAP) Pulse Ox O2 Delivery O2 Flow Rate FiO2 11/11/20 08:00 98.2 50 18 125/57 (79) 98 11/11/20 04:00 98.1 52 16 118/51 (73) 96 11/11/20 00:00 98.2 53 16 112/51 (71) 97 11/10/20 21:00 Room Air 11/10/20 20:00 97.8 51 16 118/55 (76) 96 11/10/20 16:00 96.6 78 21 122/73 (89) 96 11/10/20 12:00 98.8 87 20 120/63 (82) 97 Intake and Output 11/10/20 11/11/20 19:00 07:00 Intake Total 200 ml 567.5 ml Output Total 1200 ml Balance -1000 ml 567.5 ml Intake Oral 140 ml IV Total 60 ml 567.5 ml Output Urine Total 1200 ml # Voids 3 2 Laboratory Tests 11/11/20 09:29: White Blood Count 4.7#L, Red Blood Count 3.86L, Hemoglobin 11.3L, Hematocrit 34.7L, Mean Corpuscular Volume 90, Mean Corpuscular Hemoglobin 29.4, Mean Corpuscular Hemoglobin Concent 32.7, Red Cell Distribution Width 12.6, Platelet Count 168, Mean Platelet Volume 7.3, Neutrophils (%) (Auto) 64.6, Lymphocytes (%) (Auto) 27.4, Monocytes (%) (Auto) 5.9, Eosinophils (%) (Auto) 1.3, Basophils (%) (Auto) 0.7, Sodium Level 145, Potassium Level 4.1, Chloride Level 111H, Carbon Dioxide Level 27, Anion Gap 7, Blood Urea Nitrogen 16, Creatinine 0.8, Estimat Glomerular Filtration Rate > 60, Glucose Level 89#, Calcium Level 8.3L, Total Bilirubin 0.4, Aspartate Amino Transf (AST/SGOT) 17, Alanine Aminotransferase (ALT/SGPT) 18, Alkaline Phosphatase 68, Total Protein 7.2, Albumin 3.2L, Globulin 4.0, Albumin/Globulin Ratio 0.8L Height (Feet): 5 Height (Inches): 3.00 Weight (Pounds): 150 General Appearance: no apparent distress EENT: normal ENT inspection Neck: supple Cardiovascular: normal rate Respiratory/Chest: decreased breath sounds Abdomen: normal bowel sounds, non tender, soft Extremities: non-tender Assessment/Plan Assessment/Plan: 1. Hypertension. 2. Hyperlipidemia. 3. Gallstones. 4. History of gastric ulcer. 5. anemia neg hida scan nornal LFTS fu surg recs add ppi consider EGd on Monday Donavan Brian MD Nov 11, 2020 11:31
[2020-11-11 12:00] VITALS: BP 130/62
--- NOTE | 2020-11-11 12:43 | Infectious Diseases Prog Note ---
Assessment/Plan Assessment/Plan IMPRESSION: Cholecystitis, HIDA scan;negative Biliary colic and cholelithiasis. Hypertension Hyperlipidemia. RECOMMENDATION: Continue with Zosyn. We will f/u abdominal Ct scan Plan by the surgeon. Subjective ROS Limited/Unobtainable: Yes Gastrointestinal/Abdominal: Reports: other - dark stools, mild abdominal pain Allergies: Coded Allergies: No Known Allergies (Unverified , 09/26/12) Objective Last 24 Hour Vital Signs Date Time Temp Pulse Resp B/P (MAP) Pulse Ox O2 Delivery O2 Flow Rate FiO2 11/11/20 08:00 98.2 50 18 125/57 (79) 98 11/11/20 04:00 98.1 52 16 118/51 (73) 96 11/11/20 00:00 98.2 53 16 112/51 (71) 97 11/10/20 21:00 Room Air 11/10/20 20:00 97.8 51 16 118/55 (76) 96 11/10/20 16:00 96.6 78 21 122/73 (89) 96 Height (Feet): 5 Height (Inches): 3.00 Weight (Pounds): 150 HEENT: mucous membranes moist Respiratory/Chest: lungs clear Cardiovascular: normal rate Abdomen: soft, non tender Extremities: no edema Neurologic/Psychiatric: alert, responsive Laboratory Tests Test 11/11/20 09:29 White Blood Count 4.7 K/UL (4.8-10.8) #L Red Blood Count 3.86 M/UL (4.20-5.40) L Hemoglobin 11.3 G/DL (12.0-16.0) L Hematocrit 34.7 % (37.0-47.0) L Mean Corpuscular Volume 90 FL (80-99) Mean Corpuscular Hemoglobin 29.4 PG (27.0-31.0) Mean Corpuscular Hemoglobin Concent 32.7 G/DL (32.0-36.0) Red Cell Distribution Width 12.6 % (11.6-14.8) Platelet Count 168 K/UL (150-450) Mean Platelet Volume 7.3 FL (6.5-10.1) Neutrophils (%) (Auto) 64.6 % (45.0-75.0) Lymphocytes (%) (Auto) 27.4 % (20.0-45.0) Monocytes (%) (Auto) 5.9 % (1.0-10.0) Eosinophils (%) (Auto) 1.3 % (0.0-3.0) Basophils (%) (Auto) 0.7 % (0.0-2.0) Sodium Level 145 MMOL/L (136-145) Potassium Level 4.1 MMOL/L (3.5-5.1) Chloride Level 111 MMOL/L (98-107) H Carbon Dioxide Level 27 MMOL/L (21-32) Anion Gap 7 mmol/L (5-15) Blood Urea Nitrogen 16 mg/dL (7-18) Creatinine 0.8 MG/DL (0.55-1.30) Estimat Glomerular Filtration Rate > 60 mL/min (>60) Glucose Level 89 MG/DL (74-106) # Calcium Level 8.3 MG/DL (8.5-10.1) L Total Bilirubin 0.4 MG/DL (0.2-1.0) Aspartate Amino Transf (AST/SGOT) 17 U/L (15-37) Alanine Aminotransferase (ALT/SGPT) 18 U/L (12-78) Alkaline Phosphatase 68 U/L (46-116) Total Protein 7.2 G/DL (6.4-8.2) Albumin 3.2 G/DL (3.4-5.0) L Globulin 4.0 g/dL Albumin/Globulin Ratio 0.8 (1.0-2.7) L Current Medications Medications (Trade) Dose Ordered Sig/Ramy Route PRN Reason Start Time Stop Time Status Last Admin Dose Admin Acetaminophen (Tylenol) 500 mg Q4H PRN ORAL Mild Pain (Pain Scale 1-3) 11/10/20 09:00 12/10/20 08:59 11/10/20 14:16 Ondansetron HCl (Zofran) 4 mg Q6H PRN IVP Nausea & Vomiting 11/10/20 09:00 12/10/20 08:59 Pantoprazole (Protonix) 40 mg DAILY ORAL 11/12/20 09:00 12/12/20 08:59 Piperacillin Sod/ Tazobactam Sod 3.375 gm/Sodium Chloride 110 ml @ 27.5 mls/hr EVERY 8 HOURS IVPB 11/10/20 17:00 11/15/20 16:59 11/11/20 05:36 Sodium Chloride 1,000 ml @ 60 mls/hr [id number] IV 11/10/20 09:00 12/10/20 08:59 11/11/20 01:06 Donavan Acharya MD Nov 11, 2020 12:43
--- NOTE | 2020-11-11 13:08 | Diagnostic Imaging Report ---
Indication: Abdominal pain Technique: Spiral acquisitions obtained through the abdomen and pelvis. Patient given oral contrast No IV contrast utilized, per referring physician request.. Multiplanar reconstructions were generated. Total dose length product 287 mGycm. CTDIvol(s) 5 mGy. Dose reduction achieved using automated exposure control Comparison: No comparison CT scans. Reference made to abdominal , hepatobiliary nuclear scan Findings: There is mild wall thickening of the gastric antrum and the first and second portions of the duodenum. The remainder of the stomach is unremarkable, as is the distal esophagus. There are colonic diverticula. There is no evidence of acute diverticulitis. Abundant stool and fluid are seen throughout the colon. There is a surgical anastomotic staple line in the mid to distal sigmoid colon. The appendix is normal. No small bowel distention. No small bowel wall thickening. Ingested contrast is seen throughout the entirety of the small bowel, and is seen as far distally as the ascending colon. No free or loculated intraperitoneal gas or fluid is evident. The The gallbladder contains gallstones. The gallbladder wall is not thickened and there is no biliary ductal dilatation. The lack of IV contrast limits assessment of the solid organs. The liver, pancreas, adrenals, kidneys are unremarkable. No renal or ureteral calculi, necrosis, nor hydroureter. The spleen demonstrates a subcentimeter low-attenuation lesion centrally which is too small to characterize. The uterus is enlarged, globular in shape. No adnexal mass. No discrete pelvic mass or adenopathy demonstrated. The included lung bases demonstrate scarring or atelectasis at the base of the lingula. There are dependent atelectatic changes at the right lung base. The bones demonstrate ankylosis of the right sacroiliac joint Impression: Mild wall thickening of the gastric antrum and first and second portions of the duodenum, could indicate gastritis/duodenitis or peptic ulcer disease Abundant mostly liquid stool and fluid throughout the colon, could indicate diarrheal illness Evidence of prior sigmoid colon resection Cholelithiasis, also previously reported Enlarged globular uterus, likely due to fibroids Ankylosis of the right sacroiliac joint. Could indicate prior sacroiliitis. Correlate with clinical history Subcentimeter low-attenuation splenic lesion, too small to characterize, most likely a cyst Basilar pulmonary parenchymal scarring and/or atelectasis The CT scanner at [facility] is accredited by the [employer] and the scans are performed using protocols designed to limit radiation exposure to as low as reasonably achievable to attain images of sufficient resolution adequate for diagnostic evaluation.
--- NOTE | 2020-11-11 13:44 | Surgery Progress Note ---
Surgery Progress Note Subjective Additional Comments ct noted gastric wall thickening noted no n/v labs improved gi input noted hida negative Objective Last 24 Hour Vital Signs Date Time Temp Pulse Resp B/P (MAP) Pulse Ox O2 Delivery O2 Flow Rate FiO2 11/11/20 08:00 98.2 50 18 125/57 (79) 98 11/11/20 04:00 98.1 52 16 118/51 (73) 96 11/11/20 00:00 98.2 53 16 112/51 (71) 97 11/10/20 21:00 Room Air 11/10/20 20:00 97.8 51 16 118/55 (76) 96 11/10/20 16:00 96.6 78 21 122/73 (89) 96 I&O Intake and Output 11/10/20 11/11/20 19:00 07:00 Intake Total 200 ml 567.5 ml Output Total 1200 ml Balance -1000 ml 567.5 ml Intake Oral 140 ml IV Total 60 ml 567.5 ml Output Urine Total 1200 ml # Voids 3 2 Cardiovascular: RSR Respiratory: clear Abdomen: soft, flat, non-tender, present bowel sounds Extremities: no edema, no tenderness, no cyanosis Laboratory Tests Test 11/11/20 09:29 White Blood Count 4.7 K/UL (4.8-10.8) #L Red Blood Count 3.86 M/UL (4.20-5.40) L Hemoglobin 11.3 G/DL (12.0-16.0) L Hematocrit 34.7 % (37.0-47.0) L Mean Corpuscular Volume 90 FL (80-99) Mean Corpuscular Hemoglobin 29.4 PG (27.0-31.0) Mean Corpuscular Hemoglobin Concent 32.7 G/DL (32.0-36.0) Red Cell Distribution Width 12.6 % (11.6-14.8) Platelet Count 168 K/UL (150-450) Mean Platelet Volume 7.3 FL (6.5-10.1) Neutrophils (%) (Auto) 64.6 % (45.0-75.0) Lymphocytes (%) (Auto) 27.4 % (20.0-45.0) Monocytes (%) (Auto) 5.9 % (1.0-10.0) Eosinophils (%) (Auto) 1.3 % (0.0-3.0) Basophils (%) (Auto) 0.7 % (0.0-2.0) Sodium Level 145 MMOL/L (136-145) Potassium Level 4.1 MMOL/L (3.5-5.1) Chloride Level 111 MMOL/L (98-107) H Carbon Dioxide Level 27 MMOL/L (21-32) Anion Gap 7 mmol/L (5-15) Blood Urea Nitrogen 16 mg/dL (7-18) Creatinine 0.8 MG/DL (0.55-1.30) Estimat Glomerular Filtration Rate > 60 mL/min (>60) Glucose Level 89 MG/DL (74-106) # Calcium Level 8.3 MG/DL (8.5-10.1) L Total Bilirubin 0.4 MG/DL (0.2-1.0) Aspartate Amino Transf (AST/SGOT) 17 U/L (15-37) Alanine Aminotransferase (ALT/SGPT) 18 U/L (12-78) Alkaline Phosphatase 68 U/L (46-116) Total Protein 7.2 G/DL (6.4-8.2) Albumin 3.2 G/DL (3.4-5.0) L Globulin 4.0 g/dL Albumin/Globulin Ratio 0.8 (1.0-2.7) L Plan Problems: (1) Cholecystitis Assessment & Plan: There is mild wall thickening of the gastric antrum and the first and second portions of the duodenum. The remainder of the stomach is unremarkable, as is the distal esophagus. There are colonic diverticula. There is no evidence of acute diverticulitis. Abundant stool and fluid are seen throughout the colon. There is a surgical anastomotic staple line in the mid to distal sigmoid colon. The appendix is normal. No small bowel distention. No small bowel wall thickening. Ingested contrast is seen throughout the entirety of the small bowel, and is seen as far distally as the ascending colon. No free or loculated intraperitoneal gas or fluid is evident. The The gallbladder contains gallstones. The gallbladder wall is not thickened and there is no biliary ductal dilatation. The lack of IV contrast limits assessment of the solid organs. The liver, pancreas, adrenals, kidneys are unremarkable. No renal or ureteral calculi, necrosis, nor hydroureter. The spleen demonstrates a subcentimeter low-attenuation lesion centrally which is too small to characterize. The uterus is enlarged, globular in shape. No adnexal mass. No discrete pelvic mass or adenopathy demonstrated. The included lung bases demonstrate scarring or atelectasis at the base of the lingula. There are dependent atelectatic changes at the right lung base. The bones demonstrate ankylosis of the right sacroiliac joint Impression: Mild wall thickening of the gastric antrum and first and second portions of the duodenum, could indicate gastritis/duodenitis or peptic ulcer disease Abundant mostly liquid stool and fluid throughout the colon, could indicate diarrheal illness Evidence of prior sigmoid colon resection Cholelithiasis, also previously reported Enlarged globular uterus, likely due to fibroids Ankylosis of the right sacroiliac joint. Could indicate prior sacroiliitis. Correlate with clinical history Subcentimeter low-attenuation splenic lesion, too small to characterize, most likely a cyst Basilar pulmonary parenchymal scarring and/or atelectasis Liver: No mass. No intrahepatic bile duct dilation. Gallbladder: Multiple small gallstones in the neck. Minimal wall thickening to 3.7 mm. No pericholecystic fluid. Negative Ruano's sign. Common bile duct: No stones. No dilation. Pancreas: Obscured. Kidneys: No stones. No solid mass. No hydronephrosis. Spleen: Unremarkable. Aorta: Not evaluated. Inferior vena cava: Not evaluated. IMPRESSION: Multiple small gallstones in the neck. Minimal wall thickening to 3.7 mm. No pericholecystic fluid. Negative Ruano's sign. (2) Abdominal pain Assessment & Plan: This is a 70-year-old female presenting with abdominal pain. States she has a history of biliary colic in the past and potential cholecystitis but has not had her gallbladder taken out. States she has epigastric upper quadrant and almost generalized abdominal pain for few days near 10 days now not getting better as it usually does on its own. History of exploratory laparotomy for a colonoscopy bowel perforation. Now states feels little bit better but still would like her gallbladder taken out potentially. Ultrasound reviewed cholelithiasis no pericholecystic fluid minimal wall thickening. No Ruano's. HIDA ordered and pending. Abdominal exam fairly benign. No acute surgical invention planned. Will await HIDA results. Will follow with examination and recommendations. Thank you negative hida ct noted gi input egd? no acute surgical intervention planned can consider outpatient elective cholecystectomy upon d/c okay to follow up with me in the office thank you Dhaval Collins Nov 11, 2020 13:44
[2020-11-11] MEDS ORDERED: MAGNESIUM OXID400 M1 ORAL (14:47)
[2020-11-11] MEDS ORDERED: ATORVASTATIN CA20 MG ORAL (14:47)
[2020-11-11] MEDS ORDERED: FOSAMAX70 MG ORAL (14:47)
[2020-11-11] MEDS ORDERED: HYDROCHLOROTH12.5 MG ORAL (14:47)
[2020-11-11] MEDS ORDERED: LISINOPRIL10 MG ORAL (14:47)
[2020-11-11] MEDS ORDERED: AMLODIPINE BESY10 MG ORAL (14:47)
[2020-11-11] MEDS ORDERED: ZOLOFT100 MG ORAL (14:47)
[2020-11-11 16:00] VITALS: BP 113/66
[2020-11-11] MEDS: Acetaminophen 500mg (ES) tab ORAL PRN (18:32)
--- NOTE | 2020-11-11 19:20 | NUR ---
NURSE NOTES: Patient states that her stool color is black and that she has diarrhea and abdominal pain whenever she eats. RN made Dr. Ventura, Dr. Collins, Dr. Brian and Dr. Acharya aware. RN received order to collect occult stool and change diet to clear liquid from Dr. Brian and CBC from Dr. Collins. RN verified the order one by one. RN changed the diet to clear liquid and will endorse to the next shift nurse to collect the stool next time she has the bowel movement.
--- NOTE | 2020-11-11 19:30 | NUR ---
NURSE HAND-OFF: Important Events on Shift: tarry stool Patient Status: stable Diet: clear liquid Pending Orders: Pending Results/Labs:occult blood Pending MD notification:stable Latest Vital Signs: Temperature 98.1 , Pulse 52 , B/P 113 /66 , Respiratory Rate 18 , O2 SAT 96 , Room Air, O2 Flow Rate . Vital Sign Comment: stable Latest Martinez Fall Score: 35 Fall Risk: Medium Risk Safety Measures: Call light Within Reach, Bed Alarm Zone 1, Side Rails Side Rails x3, Bed position Low and Locked. Fall Precautions: Yellow Socks Patient Fall Education Report given to LUCIANO Gibson.
--- NOTE | 2020-11-11 19:31 | NUR ---
NURSE NOTES: Received patient in no apparent distress. A&OX4. IV site patent and intact. Remind patient collect stool sample, patient fully understood. Bed in lowest position. Call light within reach. Will continue to monitor.
[2020-11-11 20:00] VITALS: BP 148/64
--- NOTE | 2020-11-11 21:30 | NUR ---
NURSE NOTES: OB stool collected.
--- NOTE | 2020-11-11 21:31 | General Progress Note ---
Subjective ROS Limited/Unobtainable: Yes Allergies: Coded Allergies: No Known Allergies (Unverified , 09/26/12) Objective Last 24 Hour Vital Signs Date Time Temp Pulse Resp B/P (MAP) Pulse Ox O2 Delivery O2 Flow Rate FiO2 11/11/20 20:00 97.9 51 18 148/64 (92) 96 11/11/20 19:02 98.1 11/11/20 16:00 98.1 52 18 113/66 (82) 96 11/11/20 12:00 97.8 58 18 130/62 (84) 98 11/11/20 09:00 Room Air 11/11/20 08:00 98.2 50 18 125/57 (79) 98 11/11/20 04:00 98.1 52 16 118/51 (73) 96 11/11/20 00:00 98.2 53 16 112/51 (71) 97 Intake and Output 11/10/20 11/11/20 19:00 07:00 Intake Total 200 ml 567.5 ml Output Total 1200 ml Balance -1000 ml 567.5 ml Intake Oral 140 ml IV Total 60 ml 567.5 ml Output Urine Total 1200 ml # Voids 3 2 Laboratory Tests 11/11/20 09:29: White Blood Count 4.7#L, Red Blood Count 3.86L, Hemoglobin 11.3L, Hematocrit 34.7L, Mean Corpuscular Volume 90, Mean Corpuscular Hemoglobin 29.4, Mean Corpuscular Hemoglobin Concent 32.7, Red Cell Distribution Width 12.6, Platelet Count 168, Mean Platelet Volume 7.3, Neutrophils (%) (Auto) 64.6, Lymphocytes (%) (Auto) 27.4, Monocytes (%) (Auto) 5.9, Eosinophils (%) (Auto) 1.3, Basophils (%) (Auto) 0.7, Sodium Level 145, Potassium Level 4.1, Chloride Level 111H, Carbon Dioxide Level 27, Anion Gap 7, Blood Urea Nitrogen 16, Creatinine 0.8, Estimat Glomerular Filtration Rate > 60, Glucose Level 89#, Calcium Level 8.3L, Total Bilirubin 0.4, Aspartate Amino Transf (AST/SGOT) 17, Alanine Aminotransferase (ALT/SGPT) 18, Alkaline Phosphatase 68, Total Protein 7.2, Albumin 3.2L, Globulin 4.0, Albumin/Globulin Ratio 0.8L Height (Feet): 5 Height (Inches): 3.00 Weight (Pounds): 150 Assessment/Plan Problem List: (1) Cholecystitis ICD Codes: K81.9 - Cholecystitis, unspecified SNOMED: 29093654 (2) Abdominal pain ICD Codes: R10.9 - Unspecified abdominal pain SNOMED: 94536940 Status: progressing Assessment/Plan: diarrhea cholecystitis afebrile abdominal pain need iv abx Renetta Ventura MD Nov 11, 2020 21:31
[2020-11-12] VITALS (7 sets, daily range): BP systolic 138–150; BP diastolic 55–66
[2020-11-12] MEDS: Piperacillin/Tazobactam 3.375 GM in NS 110 ML IVPB SCH (05:36)
--- NOTE | 2020-11-12 07:45 | NUR ---
NURSE NOTES: Report received from Paige RN, rounds made. Patient AOx4, calm. Turkish speaking. Respirations even/unlabored on RA. IV 1/2 NS at 60 ml/hr, to RFA, site asymptomatic. Patient up as tolerated to bathroom, gait steady. Denies pain, NV, SOB. On clear liquids, appetite good. Call light in reach, bed in lowest position, will continue to monitor.
--- NOTE | 2020-11-12 07:56 | NUR ---
NURSE HAND-OFF: Important Events on Shift: Patient Status: Diet: clear liquid Pending Orders: Pending Results/Labs: Pending MD notification: Latest Vital Signs: Temperature 98.4 , Pulse 51 , B/P 150 /58 , Respiratory Rate 20 , O2 SAT 96 , Room Air, O2 Flow Rate . Vital Sign Comment: Latest Martinez Fall Score: 35 Fall Risk: Medium Risk Safety Measures: Call light Within Reach, Bed Alarm Zone 1, Side Rails Side Rails x3, Bed position Low and Locked. Fall Precautions: Yellow Socks Patient Fall Education Report given to Brooke WOLF.
--- NOTE | 2020-11-12 08:26 | Surgery Progress Note ---
Surgery Progress Note Subjective Additional Comments afebrile, HD stable labs noted micro reviewed comfortable appearing no n/v Objective Last 24 Hour Vital Signs Date Time Temp Pulse Resp B/P (MAP) Pulse Ox O2 Delivery O2 Flow Rate FiO2 11/12/20 04:00 98.4 51 20 150/58 (88) 96 11/12/20 00:00 98.3 52 20 138/55 (82) 97 11/11/20 21:00 Room Air 11/11/20 20:00 97.9 51 18 148/64 (92) 96 11/11/20 19:02 98.1 11/11/20 16:00 98.1 52 18 113/66 (82) 96 11/11/20 12:00 97.8 58 18 130/62 (84) 98 11/11/20 09:00 Room Air I&O Intake and Output 11/11/20 11/12/20 19:00 07:00 Intake Total 1260 ml 497.5 ml Balance 1260 ml 497.5 ml Intake Oral 840 ml IV Total 420 ml 497.5 ml # Voids 4 3 # Bowel Movements 1 Cardiovascular: RSR Respiratory: clear Abdomen: soft, flat, non-tender, present bowel sounds, non-distended Extremities: no edema, no tenderness, no cyanosis Laboratory Tests Test 11/11/20 09:29 11/11/20 20:40 White Blood Count 4.7 K/UL (4.8-10.8) #L Red Blood Count 3.86 M/UL (4.20-5.40) L Hemoglobin 11.3 G/DL (12.0-16.0) L Hematocrit 34.7 % (37.0-47.0) L Mean Corpuscular Volume 90 FL (80-99) Mean Corpuscular Hemoglobin 29.4 PG (27.0-31.0) Mean Corpuscular Hemoglobin Concent 32.7 G/DL (32.0-36.0) Red Cell Distribution Width 12.6 % (11.6-14.8) Platelet Count 168 K/UL (150-450) Mean Platelet Volume 7.3 FL (6.5-10.1) Neutrophils (%) (Auto) 64.6 % (45.0-75.0) Lymphocytes (%) (Auto) 27.4 % (20.0-45.0) Monocytes (%) (Auto) 5.9 % (1.0-10.0) Eosinophils (%) (Auto) 1.3 % (0.0-3.0) Basophils (%) (Auto) 0.7 % (0.0-2.0) Sodium Level 145 MMOL/L (136-145) Potassium Level 4.1 MMOL/L (3.5-5.1) Chloride Level 111 MMOL/L (98-107) H Carbon Dioxide Level 27 MMOL/L (21-32) Anion Gap 7 mmol/L (5-15) Blood Urea Nitrogen 16 mg/dL (7-18) Creatinine 0.8 MG/DL (0.55-1.30) Estimat Glomerular Filtration Rate > 60 mL/min (>60) Glucose Level 89 MG/DL (74-106) # Calcium Level 8.3 MG/DL (8.5-10.1) L Total Bilirubin 0.4 MG/DL (0.2-1.0) Aspartate Amino Transf (AST/SGOT) 17 U/L (15-37) Alanine Aminotransferase (ALT/SGPT) 18 U/L (12-78) Alkaline Phosphatase 68 U/L (46-116) Total Protein 7.2 G/DL (6.4-8.2) Albumin 3.2 G/DL (3.4-5.0) L Globulin 4.0 g/dL Albumin/Globulin Ratio 0.8 (1.0-2.7) L Stool Occult Blood Pending Plan Problems: (1) Cholecystitis Assessment & Plan: There is mild wall thickening of the gastric antrum and the first and second portions of the duodenum. The remainder of the stomach is unremarkable, as is the distal esophagus. There are colonic diverticula. There is no evidence of acute diverticulitis. Abundant stool and fluid are seen throughout the colon. There is a surgical anastomotic staple line in the mid to distal sigmoid colon. The a ppendix is normal. No small bowel distention. No small bowel wall thickening. Ingested contrast is seen throughout the entirety of the small bowel, and is seen as far distally as the ascending colon. No free or loculated intraperitoneal gas or fluid is kayleigh dent. The The gallbladder contains gallstones. The gallbladder wall is not thickened and there is no biliary ductal dilatation. The lack of IV contrast limits assessment of the solid organs. The liver, pancreas, adrenals, kidneys are unremarkable. No renal or ureteral calculi, necrosis, nor hydroureter. The spleen demonstrates a subcentimeter low-attenuation lesion centrally which is too small to characterize. The uterus is enlarged, globular in shape. No adnexal mass. No discrete pelvic mass or adenopathy demonstrated. The included lung bases demonstrate scarring or atelectasis at the base of the lingula. There are dependent atelectatic changes at the right lung base. The bones demonstrate ankylosis of the right sacroiliac joint Impression: Mild wall thickening of the gastric antrum and first and second portions of the duodenum, could indicate gastritis/duodenitis or peptic ulcer disease Abundant mostly liquid stool and fluid throughout the colon, could indicate diarrheal illness Evidence of prior sigmoid colon resection Cholelithiasis, also previously reported Enlarged globular uterus, likely due to fibroids Ankylosis of the right sacroiliac joint. Could indicate prior sacroiliitis. Correlate with clinical history Subcentimeter low-attenuation splenic lesion, too small to characterize, most likely a cyst Basilar pulmonary parenchymal scarring and/or atelectasis Liver: No mass. No intrahepatic bile duct dilation. Gallbladder: Multiple small gallstones in the neck. Minimal wall thickening to 3.7 mm. No pericholecystic fluid. Negative Ruano's sign. Common bile duct: No stones. No dilation. Pancreas: Obscured. Kidneys: No stones. No solid mass. No hydronephrosis. Spleen: Unremarkable. Aorta: Not evaluated. Inferior vena cava: Not evaluated. IMPRESSION: Multiple small gallstones in the neck. Minimal wall thickening to 3.7 mm. No pericholecystic fluid. Negative Ruano's sign. (2) Abdominal pain Assessment & Plan: This is a 70-year-old female presenting with abdominal pain. States she has a history of biliary colic in the past and potential cholecystitis but has not had her gallbladder taken out. States she has epigastric upper quadrant and almost generalized abdominal pain for few days near 10 days now not getting better as it usually does on its own. History of exploratory laparotomy for a colonoscopy bowel perforation. Now states feels little bit better but still would like her gallbladder taken out potentially. Ultrasound reviewed cholelithiasis no pericholecystic fluid minimal wall thickening. No Ruano's. HIDA ordered and pending. Abdominal exam fairly benign. No acute surgical invention planned. Will await HIDA results. Will follow with examination and recommendations. Thank you negative hida ct noted gi input egd? no acute surgical intervention planned can consider outpatient elective cholecystectomy upon d/c okay to follow up with me in the office thank you Dhaval Collins Nov 12, 2020 08:26
--- NOTE | 2020-11-12 08:35 | General Progress Note ---
Subjective Date patient seen: Nov 12, 2020 Time patient seen: 07:00 - am Allergies: Coded Allergies: No Known Allergies (Unverified , 09/26/12) Subjective HISTORY OF PRESENT ILLNESS: This is a 70-year-old female, who is being seen on the Med/Surg floor of [facility]. Patient showing no signs of pain or distress. Pain is tolerated on the Tylenol. No new complaints at this time. REVIEW OF SYSTEMS: Denies rash, fever, chills, sweating, dizziness, drowsiness, sore throat, or change in weight. No shortness of breath or chest pain. No nausea, vomiting, diarrhea, or blood in the stool. No dysuria. Objective Last 24 Hour Vital Signs Date Time Temp Pulse Resp B/P (MAP) Pulse Ox O2 Delivery O2 Flow Rate FiO2 11/12/20 04:00 98.4 51 20 150/58 (88) 96 11/12/20 00:00 98.3 52 20 138/55 (82) 97 11/11/20 21:00 Room Air 11/11/20 20:00 97.9 51 18 148/64 (92) 96 11/11/20 19:02 98.1 11/11/20 16:00 98.1 52 18 113/66 (82) 96 11/11/20 12:00 97.8 58 18 130/62 (84) 98 11/11/20 09:00 Room Air Intake and Output 11/11/20 11/12/20 19:00 07:00 Intake Total 1260 ml 497.5 ml Balance 1260 ml 497.5 ml Intake Oral 840 ml IV Total 420 ml 497.5 ml # Voids 4 3 # Bowel Movements 1 Laboratory Tests 11/11/20 09:29: White Blood Count 4.7#L, Red Blood Count 3.86L, Hemoglobin 11.3L, Hematocrit 34.7L, Mean Corpuscular Volume 90, Mean Corpuscular Hemoglobin 29.4, Mean Corpuscular Hemoglobin Concent 32.7, Red Cell Distribution Width 12.6, Platelet Count 168, Mean Platelet Volume 7.3, Neutrophils (%) (Auto) 64.6, Lymphocytes (%) (Auto) 27.4, Monocytes (%) (Auto) 5.9, Eosinophils (%) (Auto) 1.3, Basophils (%) (Auto) 0.7, Sodium Level 145, Potassium Level 4.1, Chloride Level 111H, Carbon Dioxide Level 27, Anion Gap 7, Blood Urea Nitrogen 16, Creatinine 0.8, Estimat Glomerular Filtration Rate > 60, Glucose Level 89#, Calcium Level 8.3L, Total Bilirubin 0.4, Aspartate Amino Transf (AST/SGOT) 17, Alanine Aminotransferase (ALT/SGPT) 18, Alkaline Phosphatase 68, Total Protein 7.2, Albumin 3.2L, Globulin 4.0, Albumin/Globulin Ratio 0.8L 11/11/20 20:40: Stool Occult Blood [Pending] Height (Feet): 5 Height (Inches): 3.00 Weight (Pounds): 150 Objective PHYSICAL EXAMINATION: GENERAL: Alert, awake, and oriented. LUNGS: Decreased breath sounds bilaterally. HEART: S1 and S2, regular. ABDOMEN: Tenderness to palpation. EXTREMITIES: No cyanosis. No clubbing. No edema. NEURO: No changes. Assessment/Plan Status: progressing Assessment/Plan: (1) Abdominal pain (2) Cholecystitis (2) Gall stone Patient to be continued on Tylenol D/w Dr. Rodriguez and he concurred. David Lopez Nov 12, 2020 08:35
[2020-11-12 09:50] LABS: BASOPHILS % (AUTO) 0.9 % (0.0-2.0); EOSINOPHILS % (AUTO) 1.1 % (0.0-3.0); HEMATOCRIT 34.4 % (37.0-47.0); LYMPHOCYTES % (AUTO) 27.8 % (20.0-45.0); MEAN CORPUSCULAR VOLUME 89 FL (80-99); MONOCYTES % (AUTO) 8.2 % (1.0-10.0); NEUTROPHILS % (AUTO) 61.9 % (45.0-75.0); PLATELET COUNT 163 K/UL (150-450); RED BLOOD COUNT 3.86 M/UL (4.20-5.40); RED CELL DISTRIBUTION WIDTH 12.7 % (11.6-14.8); WHITE BLOOD COUNT 4.3 K/UL (4.8-10.8)
[2020-11-12 10:37] LABS: ALANINE AMINOTRANSFERASE 18 U/L (12-78); ALBUMIN 3.2 G/DL (3.4-5.0); ALBUMIN/GLOBULIN RATIO 0.8 (1.0-2.7); ALKALINE PHOSPHATASE 64 U/L (46-116); ANION GAP 7 mmol/L (5-15); ASPARTATE AMINO TRANSFERASE 15 U/L (15-37); BILIRUBIN,TOTAL 0.4 MG/DL (0.2-1.0); BLOOD UREA NITROGEN 10 mg/dL (7-18); CALCIUM 8.5 MG/DL (8.5-10.1); CARBON DIOXIDE 28 MMOL/L (21-32); CHLORIDE 110 MMOL/L (98-107); CREATININE 0.8 MG/DL (0.55-1.30); POTASSIUM 3.6 MMOL/L (3.5-5.1); SODIUM 145 MMOL/L (136-145)
--- NOTE | 2020-11-12 11:24 | NUR ---
NURSE NOTES: Dr. Brian notified of stool OB positive.
--- NOTE | 2020-11-12 12:19 | NUR ---
NURSE NOTES: COVID specimen obtained, sent to lab.
--- NOTE | 2020-11-12 12:35 | Infectious Diseases Prog Note ---
Assessment/Plan Assessment/Plan IMPRESSION: Cholecystitis, HIDA scan;negative Biliary colic and cholelithiasis. Hypertension Hyperlipidemia. Gastritis/ duodenitis RECOMMENDATION: Change Zosyn to Rocephin & Flagyl Elective cholecystectomy Plan by the GI Subjective ROS Limited/Unobtainable: No Constitutional: Reports: no symptoms Respiratory: Reports: no symptoms Gastrointestinal/Abdominal: Reports: no symptoms Genitourinary: Reports: no symptoms Allergies: Coded Allergies: No Known Allergies (Unverified , 09/26/12) Objective Last 24 Hour Vital Signs Date Time Temp Pulse Resp B/P (MAP) Pulse Ox O2 Delivery O2 Flow Rate FiO2 11/12/20 04:00 98.4 51 20 150/58 (88) 96 11/12/20 00:00 98.3 52 20 138/55 (82) 97 11/11/20 21:00 Room Air 11/11/20 20:00 97.9 51 18 148/64 (92) 96 11/11/20 19:02 98.1 11/11/20 16:00 98.1 52 18 113/66 (82) 96 Height (Feet): 5 Height (Inches): 3.00 Weight (Pounds): 150 HEENT: mucous membranes moist Respiratory/Chest: lungs clear Cardiovascular: normal rate Abdomen: soft, non tender Extremities: no edema Neurologic/Psychiatric: alert, responsive Microbiology Date/Time Source Procedure Growth Status 11/10/20 02:11 Urine,Clean Catch Urine Culture - Preliminary NO GROWTH Resulted Laboratory Tests Test 11/11/20 20:40 11/12/20 09:05 Stool Occult Blood Positive (NEGATIVE) White Blood Count 4.3 K/UL (4.8-10.8) L Red Blood Count 3.86 M/UL (4.20-5.40) L Hemoglobin 11.0 G/DL (12.0-16.0) L Hematocrit 34.4 % (37.0-47.0) L Mean Corpuscular Volume 89 FL (80-99) Mean Corpuscular Hemoglobin 28.6 PG (27.0-31.0) Mean Corpuscular Hemoglobin Concent 32.1 G/DL (32.0-36.0) Red Cell Distribution Width 12.7 % (11.6-14.8) Platelet Count 163 K/UL (150-450) Mean Platelet Volume 7.7 FL (6.5-10.1) Neutrophils (%) (Auto) 61.9 % (45.0-75.0) Lymphocytes (%) (Auto) 27.8 % (20.0-45.0) Monocytes (%) (Auto) 8.2 % (1.0-10.0) Eosinophils (%) (Auto) 1.1 % (0.0-3.0) Basophils (%) (Auto) 0.9 % (0.0-2.0) Sodium Level 145 MMOL/L (136-145) Potassium Level 3.6 MMOL/L (3.5-5.1) Chloride Level 110 MMOL/L (98-107) H Carbon Dioxide Level 28 MMOL/L (21-32) Anion Gap 7 mmol/L (5-15) Blood Urea Nitrogen 10 mg/dL (7-18) Creatinine 0.8 MG/DL (0.55-1.30) Estimat Glomerular Filtration Rate > 60 mL/min (>60) Glucose Level 114 MG/DL (74-106) H Calcium Level 8.5 MG/DL (8.5-10.1) Total Bilirubin 0.4 MG/DL (0.2-1.0) Aspartate Amino Transf (AST/SGOT) 15 U/L (15-37) Alanine Aminotransferase (ALT/SGPT) 18 U/L (12-78) Alkaline Phosphatase 64 U/L (46-116) Total Protein 7.2 G/DL (6.4-8.2) Albumin 3.2 G/DL (3.4-5.0) L Globulin 4.0 g/dL Albumin/Globulin Ratio 0.8 (1.0-2.7) L Current Medications Medications (Trade) Dose Ordered Sig/Ramy Route PRN Reason Start Time Stop Time Status Last Admin Dose Admin Acetaminophen (Tylenol) 500 mg Q4H PRN ORAL Mild Pain (Pain Scale 1-3) 11/10/20 09:00 12/10/20 08:59 11/11/20 18:32 Ondansetron HCl (Zofran) 4 mg Q6H PRN IVP Nausea & Vomiting 11/10/20 09:00 12/10/20 08:59 Pantoprazole (Protonix) 40 mg DAILY ORAL 11/12/20 09:00 12/12/20 08:59 11/12/20 09:50 Piperacillin Sod/ Tazobactam Sod 3.375 gm/Sodium Chloride 110 ml @ 27.5 mls/hr EVERY 8 HOURS IVPB 11/10/20 17:00 11/15/20 16:59 11/12/20 05:36 Sodium Chloride 1,000 ml @ 60 mls/hr [id number] IV 11/10/20 09:00 12/10/20 08:59 11/11/20 18:31 Donavan Acharya MD Nov 12, 2020 12:35
--- NOTE | 2020-11-12 14:11 | NUR ---
NURSE NOTES: Dr. Ventura notified of HR 49 (rechecked apical 49), BP 148/63 and 139/65. Patient is not on any cardiac or blood pressure medications. Patient is asymptomatic. Orders to transfer patient to TELE. Carolyn CHAUDHARY notified of above. Will update patient and daughter.
--- NOTE | 2020-11-12 14:26 | General Progress Note ---
Subjective ROS Limited/Unobtainable: Yes Allergies: Coded Allergies: No Known Allergies (Unverified , 09/26/12) Objective Last 24 Hour Vital Signs Date Time Temp Pulse Resp B/P (MAP) Pulse Ox O2 Delivery O2 Flow Rate FiO2 11/12/20 04:00 98.4 51 20 150/58 (88) 96 11/12/20 00:00 98.3 52 20 138/55 (82) 97 11/11/20 21:00 Room Air 11/11/20 20:00 97.9 51 18 148/64 (92) 96 11/11/20 19:02 98.1 11/11/20 16:00 98.1 52 18 113/66 (82) 96 Intake and Output 11/11/20 11/12/20 19:00 07:00 Intake Total 1260 ml 497.5 ml Balance 1260 ml 497.5 ml Intake Oral 840 ml IV Total 420 ml 497.5 ml # Voids 4 3 # Bowel Movements 1 Laboratory Tests 11/11/20 20:40: Stool Occult Blood Positive 11/12/20 09:05: White Blood Count 4.3L, Red Blood Count 3.86L, Hemoglobin 11.0L, Hematocrit 34.4L, Mean Corpuscular Volume 89, Mean Corpuscular Hemoglobin 28.6, Mean Corpuscular Hemoglobin Concent 32.1, Red Cell Distribution Width 12.7, Platelet Count 163, Mean Platelet Volume 7.7, Neutrophils (%) (Auto) 61.9, Lymphocytes (%) (Auto) 27.8, Monocytes (%) (Auto) 8.2, Eosinophils (%) (Auto) 1.1, Basophils (%) (Auto) 0.9, Sodium Level 145, Potassium Level 3.6, Chloride Level 110H, Carbon Dioxide Level 28, Anion Gap 7, Blood Urea Nitrogen 10, Creatinine 0.8, Estimat Glomerular Filtration Rate > 60, Glucose Level 114H, Calcium Level 8.5, Total Bilirubin 0.4, Aspartate Amino Transf (AST/SGOT) 15, Alanine Aminotransferase (ALT/SGPT) 18, Alkaline Phosphatase 64, Total Protein 7.2, Albumin 3.2L, Globulin 4.0, Albumin/Globulin Ratio 0.8L Height (Feet): 5 Height (Inches): 3.00 Weight (Pounds): 150 General Appearance: no apparent distress EENT: normal ENT inspection Neck: supple Cardiovascular: normal rate Respiratory/Chest: decreased breath sounds Abdomen: normal bowel sounds, non tender, soft Extremities: non-tender Assessment/Plan Status: progressing Assessment/Plan: 1. Hypertension. 2. Hyperlipidemia. 3. Gallstones. 4. History of gastric ulcer. 5. anemia neg hida scan nornal LFTS fu surg recs add ppi stool ob positive plan EGd tomorrow Donavan Brian MD Nov 12, 2020 14:26
[2020-11-12] MEDS: cefTRIAXone 1 GM in D5W 55 ML IVPB SCH (14:33)
[2020-11-12] MEDS: metroNIDAZOLE 500mg tab ORAL SCH ×2 (14:34→21:54)
--- NOTE | 2020-11-12 15:52 | NUR ---
NURSE NOTES: Dr. Brian notified that patient is Vietnamese speaking and requires receiving manager for EGD procedure instructions/indication, provided daughter number, Dr. Brian will call daughter. RN called daughter to update on patient current status, plans for EGD and transfer to TELE, verbalized understanding, daughter will update patient.
--- NOTE | 2020-11-12 15:53 | NUR ---
CASE MANAGEMENT:REVIEW 11/12/20 SI: ABDOMINAL PAIN. CHOLECYSTITIS 98.9 49 18 139/65 98% ON RA H/H-11.0/34.4 IS: FLAGYL PO Q8HRS IV ROCEPHIN Q24 PROTONIX PO QD IVF@60/HR : MED/SURG STATUS DCP: FROM HOME PLAN: EGD TOMORROW
--- NOTE | 2020-11-12 16:20 | NUR ---
NURSE NOTES: Patient transferred to via bed on RA, in stable condition. All belongings, labs, vitals, skin status, diet (NPO at [facility]) reviewed with receiving RNGhislaine. IV to RFA as ordered, site asymptomatic. Endorsed EGD consent (provided during report) still needs patient's signature after Dr. Arevalo discusses with patient's daughter. Endorsed patient is PUI (contact/droplet isolation), COVID results pending.
--- NOTE | 2020-11-12 16:36 | NUR ---
NURSE NOTES: Received patient from , transferred to bed. IV line intact and patent. Skin intact. Ambulatory with steady gait. Pleasant disposition. Belongings accounted for. On Clear liquid diet then NPO post midnight for EGD tomorrow, Dr Brian still to explain procedure prior to securing consent. manufacturing accountant placed. HOB elevated. Bed locked in low position. Call light within reach. Will continue plan of care.
--- NOTE | 2020-11-12 19:26 | NUR ---
NURSE NOTES: Received report from LUCIANO MAX. Pt in bed, A/O x4, verbally responsive and able to make needs known, sinhala speaking with few vincentian. On room air, tolerating and saturating well @ 97%. Denies any pain/ discomfort at the moment. Iv sites R forearm #22, intact, patent and flushed well. Safety measures in place, bed in lowest positioned and locked, call light within reach. Will continue to monitor and plan of care.
--- NOTE | 2020-11-12 19:40 | NUR ---
NURSE HAND-OFF REPORT: Important Events on Shift: consent for EGD secured in chart. Requesting EGD to be done early, Dr Brian made aware, left message, awaiting response. Patient Status: alert, ambulatory with steady gait Diet: NPO post midnight Pending Orders: EGD Pending Results/Labs: Pending MD notification: Latest Vital Signs: Temperature 99.1 , Pulse 45 , B/P 142 /60 , Respiratory Rate 18 , O2 SAT 99 , Room Air, O2 Flow Rate . Vital Sign Comment: EKG Rhythm: Sinus Bradycardia Rhythm change?: N MD Notified?: - MD Response: Latest Martinez Fall Score: 20 Fall Risk: Low Risk Safety Measures: Call light Within Reach, Bed Alarm Zone 1, Side Rails Side Rails x3, Bed position Low and Locked. Fall Precautions: Yellow Socks Patient Fall Education Report given to Ronan RN.
--- NOTE | 2020-11-12 20:42 | General Progress Note ---
Subjective ROS Limited/Unobtainable: Yes Allergies: Coded Allergies: No Known Allergies (Unverified , 09/26/12) Objective Last 24 Hour Vital Signs Date Time Temp Pulse Resp B/P (MAP) Pulse Ox O2 Delivery O2 Flow Rate FiO2 11/12/20 17:07 45 11/12/20 16:36 99.1 51 18 142/60 (87) 99 11/12/20 16:00 97.5 49 18 138/66 (90) 98 11/12/20 14:10 49 11/12/20 12:00 98.9 49 18 139/65 (89) 98 11/12/20 09:00 Room Air 11/12/20 08:00 97.8 49 18 148/63 (91) 96 11/12/20 04:00 98.4 51 20 150/58 (88) 96 11/12/20 00:00 98.3 52 20 138/55 (82) 97 11/11/20 21:00 Room Air Intake and Output 11/11/20 11/12/20 19:00 07:00 Intake Total 1260 ml 557.5 ml Balance 1260 ml 557.5 ml Intake Oral 840 ml IV Total 420 ml 557.5 ml # Voids 4 3 # Bowel Movements 1 Laboratory Tests 11/12/20 09:05: White Blood Count 4.3L, Red Blood Count 3.86L, Hemoglobin 11.0L, Hematocrit 34.4L, Mean Corpuscular Volume 89, Mean Corpuscular Hemoglobin 28.6, Mean Corpuscular Hemoglobin Concent 32.1, Red Cell Distribution Width 12.7, Platelet Count 163, Mean Platelet Volume 7.7, Neutrophils (%) (Auto) 61.9, Lymphocytes (%) (Auto) 27.8, Monocytes (%) (Auto) 8.2, Eosinophils (%) (Auto) 1.1, Basophils (%) (Auto) 0.9, Sodium Level 145, Potassium Level 3.6, Chloride Level 110H, Carbon Dioxide Level 28, Anion Gap 7, Blood Urea Nitrogen 10, Creatinine 0.8, Estimat Glomerular Filtration Rate > 60, Glucose Level 114H, Calcium Level 8.5, Total Bilirubin 0.4, Aspartate Amino Transf (AST/SGOT) 15, Alanine Aminotransferase (ALT/SGPT) 18, Alkaline Phosphatase 64, Total Protein 7.2, Albumin 3.2L, Globulin 4.0, Albumin/Globulin Ratio 0.8L Height (Feet): 5 Height (Inches): 3.00 Weight (Pounds): 150 Assessment/Plan Problem List: (1) Cholecystitis ICD Codes: K81.9 - Cholecystitis, unspecified SNOMED: 88306601 (2) Abdominal pain ICD Codes: R10.9 - Unspecified abdominal pain SNOMED: 24879694 Status: progressing Assessment/Plan: cholycystitis needs to go to snf for continuation of iv abx abdomin is soft abdominal pain need iv abx Renetta Ventura MD Nov 12, 2020 20:42
[2020-11-13] VITALS: BP 144/73
--- NOTE | 2020-11-13 | NUR ---
NURSE NOTES: Pt in bed, awake. In no apparent cardiac and respiratory distress noted. Denies any pain or discomfort at the moment. Reminded pt about being NPO and verbalized understanding on the process. Pt able to turn and reposition self. Will continue to monitor and plan of care.
[2020-11-13 04:00] VITALS: BP 144/68
[2020-11-13] MEDS: metroNIDAZOLE 500mg tab ORAL SCH ×2 (06:03→14:27)
--- NOTE | 2020-11-13 07:30 | NUR ---
NURSE NOTES: Received report from LUCIANO Rubio. Patient observed to be asleep, with HOB elevated. Currently on 3LNC patient showing no s/sx of SOB/Distress, no c/o any pain or discomfort. Patient currently on NPO for swallow eval. Patient on contact and droplet isolation (+) covid. Patient with 2 iv sites RFA 20g and LFA 20G both lines inplace, intact and patent running NS @50CC. Bed placed on lowest and locked, call light placed within reach and will continue to monitor for any changes in patient's condition.
--- NOTE | 2020-11-13 07:30 | NUR ---
NURSE NOTES: Received report from LUCIANO Desir. Patient observed to be awake, alert, and oriented x4. Uzbek speaking. Currently on orin, air no s/sx of sob/distress, no c/o any pain or discomfort. Patient on contact and droplet isolation for PUI COVID. On npo for scheduled egd, consent obtained previous shift. Patient with iv site located on RFA 22 running 1/2 ns @ [address] intact and dry. Bed placed on lowest and locked, call light placed within reach and will continue to monitor for any changes in condition.
--- NOTE | 2020-11-13 07:39 | NUR ---
NURSE HAND-OFF REPORT: Important Events on Shift: NPO for EGD Patient Status: Stable Diet: NPO Pending Orders: Pending Results/Labs: Pending MD notification: Latest Vital Signs: Temperature 97.5 , Pulse 42 , B/P 144 /68 , Respiratory Rate 18 , O2 SAT 98 , Room Air, O2 Flow Rate . Vital Sign Comment: Stable EKG Rhythm: Sinus Bradycardia Rhythm change?: N MD Notified?: - MD Response: Latest Martinez Fall Score: 20 Fall Risk: Low Risk Safety Measures: Call light Within Reach, Bed Alarm Zone 1, Side Rails Side Rails x3, Bed position Low and Locked. Fall Precautions: Yellow Socks Patient Fall Education Report given to Gillian Jara RN.
[2020-11-13 08:00] VITALS: BP 147/59
--- NOTE | 2020-11-13 08:00 | NUR ---
NURSE NOTES: Received order from Dr. Ventura for patient to be discharged to [facility]. D/C all hosp meds and continue home meds. Continue IV Rocephin x 5days. Orders noted and carried out.
--- NOTE | 2020-11-13 08:14 | Anethesia Preoperative Eval ---
Anesthesia Pre-op PMH/ROS General Date of Evaluation: Nov 13, 2020 Anesthesiologist: Noble ASA Score: ASA 3 Mallampati Score Class I : Soft palate, uvula, fauces, pillars visible Class II: Soft palate, uvula, fauces visible Class III: Soft palate, base of uvula visible Class IV: Only hard plate visible Mallampati Classification: Class II Surgeon: Roc Diagnosis: Ob + stools Surgical Procedure: EGD Anesthesia History: none Family History: no anesthesia problems Allergies: Coded Allergies: No Known Allergies (Unverified , 09/26/12) Medications: see eMAR Patient NPO?: Yes NPO Date: Nov 13, 2020 NPO Time: 00:00 Past Medical History Cardiovascular: Reports: HTN; Denies: CAD, ME, valve dz, arrhythmia, other Pulmonary: Denies: asthma, COPD, CANDIE, other Gastrointestinal/Genitourinary: Reports: GERD, other - gallstones; Denies: CRI, ESRD Neurologic/Psychiatric: Reports: dementia; Denies: CVA, depression/anxiety, TIA, other Endocrine: Denies: DM, hypothyroidism, steroids, other HEENT: Denies: cataract (L), cataract (R), glaucoma, [place] (L), [place] (R), other Hematology/Immune: Denies: anemia, DVT, bleeding disorder, other Musculoskeletal/Integumentary: Reports: OA; Denies: RA, DJD, DDD, edema, other Anesthesia Pre-op Phys. Exam Physician Exam Last Vital Signs Date Time Temp Pulse Resp B/P (MAP) Pulse Ox O2 Delivery O2 Flow Rate FiO2 11/13/20 04:00 97.5 42 18 144/68 (93) 98 11/12/20 21:00 Room Air Constitutional: NAD Cardiovascular: RRR Respiratory: CTA Airway Exam Mallampati Score: Class II MO: full ROM: full Anesthesia Pre-op A/P Labs Hematology Test 11/12/20 09:05 White Blood Count 4.3 K/UL (4.8-10.8) L Red Blood Count 3.86 M/UL (4.20-5.40) L Hemoglobin 11.0 G/DL (12.0-16.0) L Hematocrit 34.4 % (37.0-47.0) L Mean Corpuscular Volume 89 FL (80-99) Mean Corpuscular Hemoglobin 28.6 PG (27.0-31.0) Mean Corpuscular Hemoglobin Concent 32.1 G/DL (32.0-36.0) Red Cell Distribution Width 12.7 % (11.6-14.8) Platelet Count 163 K/UL (150-450) Mean Platelet Volume 7.7 FL (6.5-10.1) Neutrophils (%) (Auto) 61.9 % (45.0-75.0) Lymphocytes (%) (Auto) 27.8 % (20.0-45.0) Monocytes (%) (Auto) 8.2 % (1.0-10.0) Eosinophils (%) (Auto) 1.1 % (0.0-3.0) Basophils (%) (Auto) 0.9 % (0.0-2.0) Chemistry Test 11/12/20 09:05 Sodium Level 145 MMOL/L (136-145) Potassium Level 3.6 MMOL/L (3.5-5.1) Chloride Level 110 MMOL/L (98-107) H Carbon Dioxide Level 28 MMOL/L (21-32) Anion Gap 7 mmol/L (5-15) Blood Urea Nitrogen 10 mg/dL (7-18) Creatinine 0.8 MG/DL (0.55-1.30) Estimat Glomerular Filtration Rate > 60 mL/min (>60) Glucose Level 114 MG/DL (74-106) H Calcium Level 8.5 MG/DL (8.5-10.1) Total Bilirubin 0.4 MG/DL (0.2-1.0) Aspartate Amino Transf (AST/SGOT) 15 U/L (15-37) Alanine Aminotransferase (ALT/SGPT) 18 U/L (12-78) Alkaline Phosphatase 64 U/L (46-116) Total Protein 7.2 G/DL (6.4-8.2) Albumin 3.2 G/DL (3.4-5.0) L Globulin 4.0 g/dL Albumin/Globulin Ratio 0.8 (1.0-2.7) L Studies Pre-op Studies: EKG - sr Risk Assessment & Plan Assessment: ASA III Plan: GA Status Change Before Surgery: No Pre-Antibiotics Drug: N/A Manasa Dickey MD Nov 13, 2020 08:14
--- NOTE | 2020-11-13 08:46 | General Progress Note ---
Subjective Date patient seen: Nov 13, 2020 Time patient seen: 07:15 - am Allergies: Coded Allergies: No Known Allergies (Unverified , 09/26/12) Subjective HISTORY OF PRESENT ILLNESS: This is a 70-year-old female, who is being seen on the Tele floor of [facility]. Patient in bed and denies pain has no new complaints at this time. REVIEW OF SYSTEMS: Denies rash, fever, chills, sweating, dizziness, drowsiness, sore throat, or change in weight. No shortness of breath or chest pain. No nausea, vomiting, diarrhea, or blood in the stool. No dysuria. Objective Last 24 Hour Vital Signs Date Time Temp Pulse Resp B/P (MAP) Pulse Ox O2 Delivery O2 Flow Rate FiO2 11/13/20 04:00 97.5 42 18 144/68 (93) 98 11/13/20 03:40 43 11/13/20 00:00 98.2 58 18 144/73 (96) 96 11/12/20 23:37 45 11/12/20 21:00 Room Air 11/12/20 20:00 97.9 58 18 147/60 (89) 99 11/12/20 19:37 46 11/12/20 17:07 45 11/12/20 16:36 99.1 51 18 142/60 (87) 99 11/12/20 16:00 97.5 49 18 138/66 (90) 98 11/12/20 14:10 49 11/12/20 12:00 98.9 49 18 139/65 (89) 98 11/12/20 09:00 Room Air Intake and Output 11/12/20 11/13/20 19:00 07:00 Intake Total 1380 ml Balance 1380 ml Intake Oral 840 ml IV Total 540 ml # Voids 2 3 # Bowel Movements 1 Laboratory Tests 11/12/20 09:05: White Blood Count 4.3L, Red Blood Count 3.86L, Hemoglobin 11.0L, Hematocrit 34.4L, Mean Corpuscular Volume 89, Mean Corpuscular Hemoglobin 28.6, Mean Corpuscular Hemoglobin Concent 32.1, Red Cell Distribution Width 12.7, Platelet Count 163, Mean Platelet Volume 7.7, Neutrophils (%) (Auto) 61.9, Lymphocytes (%) (Auto) 27.8, Monocytes (%) (Auto) 8.2, Eosinophils (%) (Auto) 1.1, Basophils (%) (Auto) 0.9, Sodium Level 145, Potassium Level 3.6, Chloride Level 110H, Carbon Dioxide Level 28, Anion Gap 7, Blood Urea Nitrogen 10, Creatinine 0.8, Estimat Glomerular Filtration Rate > 60, Glucose Level 114H, Calcium Level 8.5, Total Bilirubin 0.4, Aspartate Amino Transf (AST/SGOT) 15, Alanine Aminotransferase (ALT/SGPT) 18, Alkaline Phosphatase 64, Total Protein 7.2, Albumin 3.2L, Globulin 4.0, Albumin/Globulin Ratio 0.8L Height (Feet): 5 Height (Inches): 3.00 Weight (Pounds): 150 Objective PHYSICAL EXAMINATION: GENERAL: Alert, awake, and oriented. LUNGS: Decreased breath sounds bilaterally. HEART: S1 and S2, regular. ABDOMEN: Tenderness to palpation. EXTREMITIES: No cyanosis. No clubbing. No edema. NEURO: No changes. Assessment/Plan Status: progressing Assessment/Plan: (1) Abdominal pain (2) Cholecystitis (2) Gall stone Patient to be continued on Tylenol D/w Dr. Rodriguez and he concurred. David Lopez Nov 13, 2020 08:46
--- NOTE | 2020-11-13 09:00 | NUR ---
NURSE NOTES: EGD cancelled. Patient to be d/c to snf
[2020-11-13 09:04] LABS: BASOPHILS % (AUTO) 0.7 % (0.0-2.0); EOSINOPHILS % (AUTO) 0.9 % (0.0-3.0); HEMATOCRIT 34.9 % (37.0-47.0); HEMOGLOBIN 11.5 G/DL (12.0-16.0); MEAN CORPUSCULAR VOLUME 88 FL (80-99); MONOCYTES % (AUTO) 7.6 % (1.0-10.0); NEUTROPHILS % (AUTO) 65.8 % (45.0-75.0); PLATELET COUNT 179 K/UL (150-450); RED BLOOD COUNT 3.99 M/UL (4.20-5.40); RED CELL DISTRIBUTION WIDTH 12.1 % (11.6-14.8); WHITE BLOOD COUNT 4.8 K/UL (4.8-10.8)
[2020-11-13 09:18] LABS: ANION GAP 7 mmol/L (5-15); BLOOD UREA NITROGEN 9 mg/dL (7-18); CALCIUM 8.7 MG/DL (8.5-10.1); CARBON DIOXIDE 28 MMOL/L (21-32); CHLORIDE 109 MMOL/L (98-107); CREATININE 0.7 MG/DL (0.55-1.30); POTASSIUM 3.4 MMOL/L (3.5-5.1); SODIUM 144 MMOL/L (136-145)
[2020-11-13 09:21] LABS: ALANINE AMINOTRANSFERASE 20 U/L (12-78); ALBUMIN 3.3 G/DL (3.4-5.0); ALBUMIN/GLOBULIN RATIO 0.8 (1.0-2.7); ALKALINE PHOSPHATASE 64 U/L (46-116); ASPARTATE AMINO TRANSFERASE 18 U/L (15-37); BILIRUBIN,TOTAL 0.5 MG/DL (0.2-1.0)
[2020-11-13 12:00] VITALS: BP 136/84
--- NOTE | 2020-11-13 12:38 | General Progress Note ---
Subjective ROS Limited/Unobtainable: No Allergies: Coded Allergies: No Known Allergies (Unverified , 09/26/12) Objective Last 24 Hour Vital Signs Date Time Temp Pulse Resp B/P (MAP) Pulse Ox O2 Delivery O2 Flow Rate FiO2 11/13/20 12:00 44 11/13/20 09:00 Room Air 11/13/20 08:00 98.0 47 18 147/59 (88) 98 11/13/20 08:00 44 11/13/20 04:00 97.5 42 18 144/68 (93) 98 11/13/20 03:40 43 11/13/20 00:00 98.2 58 18 144/73 (96) 96 11/12/20 23:37 45 11/12/20 21:00 Room Air 11/12/20 20:00 97.9 58 18 147/60 (89) 99 11/12/20 19:37 46 11/12/20 17:07 45 11/12/20 16:36 99.1 51 18 142/60 (87) 99 11/12/20 16:00 97.5 49 18 138/66 (90) 98 11/12/20 14:10 49 Intake and Output 11/12/20 11/13/20 19:00 07:00 Intake Total 1380 ml Balance 1380 ml Intake Oral 840 ml IV Total 540 ml # Voids 2 3 # Bowel Movements 1 Laboratory Tests 11/13/20 08:50: White Blood Count 4.8, Red Blood Count 3.99L, Hemoglobin 11.5L, Hematocrit 34.9L , Mean Corpuscular Volume 88, Mean Corpuscular Hemoglobin 28.8, Mean Corpuscular Hemoglobin Concent 32.9, Red Cell Distribution Width 12.1, Platelet Count 179, Mean Platelet Volume 7.3, Neutrophils (%) (Auto) 65.8, Lymphocytes (%) (Auto) 25.0, Monocytes (%) (Auto) 7.6, Eosinophils (%) (Auto) 0.9, Basophils (%) (Auto) 0.7, Sodium Level 144, Potassium Level 3.4L, Chloride Level 109H, Carbon Dioxide Level 28, Anion Gap 7, Blood Urea Nitrogen 9, Creatinine 0.7, Estimat Glomerular Filtration Rate > 60, Glucose Level 92, Calcium Level 8.7, Total Bilirubin 0.5, Aspartate Amino Transf (AST/SGOT) 18, Alanine Aminotransferase (ALT/SGPT) 20, Alkaline Phosphatase 64, Total Protein 7.3, Albumin 3.3L, Globulin 4.0, Albumin/Globulin Ratio 0.8L Height (Feet): 5 Height (Inches): 3.00 Weight (Pounds): 150 General Appearance: no apparent distress EENT: normal ENT inspection Neck: supple Cardiovascular: normal rate Respiratory/Chest: decreased breath sounds Abdomen: normal bowel sounds, non tender, soft Extremities: non-tender Assessment/Plan Status: progressing Assessment/Plan: 1. Hypertension. 2. Hyperlipidemia. 3. Gallstones. 4. History of gastric ulcer. 5. anemia neg hida scan nornal LFTS fu surg recs add ppi stool ob positive EGD canceled to stable H&H and bradycardia nees out patient fu Donavan Brian MD Nov 13, 2020 12:38
--- NOTE | 2020-11-13 12:48 | NUR ---
*-*DISCHARGE PLANNED*-* PATIENT HAS BEEN ACCEPTED AND WILL BE DISCHARGE BACK TO: [facility] P: [phone] FOR NURSE TO NURSE REPORT ROOM# 106.[facility] SET FOR 2:45PM S/W MAIKEL [id number].
--- NOTE | 2020-11-13 13:29 | Infectious Diseases Prog Note ---
Assessment/Plan Assessment/Plan IMPRESSION: Cholecystitis, HIDA scan;negative Biliary colic and cholelithiasis. Hypertension Hyperlipidemia. Gastritis/ duodenitis COVID 19 test negative RECOMMENDATION: Change Zosyn to Rocephin & Flagyl Elective cholecystectomy as outpatient Subjective ROS Limited/Unobtainable: Yes Respiratory: Reports: no symptoms Gastrointestinal/Abdominal: Reports: no symptoms Genitourinary: Reports: no symptoms Allergies: Coded Allergies: No Known Allergies (Unverified , 09/26/12) Objective Last 24 Hour Vital Signs Date Time Temp Pulse Resp B/P (MAP) Pulse Ox O2 Delivery O2 Flow Rate FiO2 11/13/20 12:00 44 11/13/20 12:00 97.8 47 18 136/84 (101) 97 11/13/20 09:00 Room Air 11/13/20 08:00 98.0 47 18 147/59 (88) 98 11/13/20 08:00 44 11/13/20 04:00 97.5 42 18 144/68 (93) 98 11/13/20 03:40 43 11/13/20 00:00 98.2 58 18 144/73 (96) 96 11/12/20 23:37 45 11/12/20 21:00 Room Air 11/12/20 20:00 97.9 58 18 147/60 (89) 99 11/12/20 19:37 46 11/12/20 17:07 45 11/12/20 16:36 99.1 51 18 142/60 (87) 99 11/12/20 16:00 97.5 49 18 138/66 (90) 98 11/12/20 14:10 49 Height (Feet): 5 Height (Inches): 3.00 Weight (Pounds): 150 HEENT: mucous membranes moist Respiratory/Chest: lungs clear Cardiovascular: normal rate Abdomen: soft, non tender Extremities: no edema Neurologic/Psychiatric: alert, responsive Microbiology Date/Time Source Procedure Growth Status 11/12/20 12:15 Nasopharynx Coronavirus COVID-19 PCR ([facility]) - Final Complete Laboratory Tests Test 11/13/20 08:50 White Blood Count 4.8 K/UL (4.8-10.8) Red Blood Count 3.99 M/UL (4.20-5.40) L Hemoglobin 11.5 G/DL (12.0-16.0) L Hematocrit 34.9 % (37.0-47.0) L Mean Corpuscular Volume 88 FL (80-99) Mean Corpuscular Hemoglobin 28.8 PG (27.0-31.0) Mean Corpuscular Hemoglobin Concent 32.9 G/DL (32.0-36.0) Red Cell Distribution Width 12.1 % (11.6-14.8) Platelet Count 179 K/UL (150-450) Mean Platelet Volume 7.3 FL (6.5-10.1) Neutrophils (%) (Auto) 65.8 % (45.0-75.0) Lymphocytes (%) (Auto) 25.0 % (20.0-45.0) Monocytes (%) (Auto) 7.6 % (1.0-10.0) Eosinophils (%) (Auto) 0.9 % (0.0-3.0) Basophils (%) (Auto) 0.7 % (0.0-2.0) Sodium Level 144 MMOL/L (136-145) Potassium Level 3.4 MMOL/L (3.5-5.1) L Chloride Level 109 MMOL/L (98-107) H Carbon Dioxide Level 28 MMOL/L (21-32) Anion Gap 7 mmol/L (5-15) Blood Urea Nitrogen 9 mg/dL (7-18) Creatinine 0.7 MG/DL (0.55-1.30) Estimat Glomerular Filtration Rate > 60 mL/min (>60) Glucose Level 92 MG/DL (74-106) Calcium Level 8.7 MG/DL (8.5-10.1) Total Bilirubin 0.5 MG/DL (0.2-1.0) Aspartate Amino Transf (AST/SGOT) 18 U/L (15-37) Alanine Aminotransferase (ALT/SGPT) 20 U/L (12-78) Alkaline Phosphatase 64 U/L (46-116) Total Protein 7.3 G/DL (6.4-8.2) Albumin 3.3 G/DL (3.4-5.0) L Globulin 4.0 g/dL Albumin/Globulin Ratio 0.8 (1.0-2.7) L Current Medications Medications (Trade) Dose Ordered Sig/Ramy Route PRN Reason Start Time Stop Time Status Last Admin Dose Admin Acetaminophen (Tylenol) 500 mg Q4H PRN ORAL Mild Pain (Pain Scale 1-3) 11/10/20 09:00 12/10/20 08:59 11/11/20 18:32 Ceftriaxone Sodium 1 gm/ Dextrose 55 ml @ 110 mls/hr Q24H IVPB 11/12/20 14:00 11/19/20 13:59 11/12/20 14:33 Metronidazole (Flagyl) 500 mg Q8HR ORAL 11/12/20 14:00 11/19/20 13:59 11/13/20 06:03 Ondansetron HCl (Zofran) 4 mg Q6H PRN IVP Nausea & Vomiting 11/10/20 09:00 12/10/20 08:59 Pantoprazole (Protonix) 40 mg DAILY ORAL 11/12/20 09:00 12/12/20 08:59 11/13/20 09:04 Sodium Chloride 1,000 ml @ 60 mls/hr [id number] IV 11/10/20 09:00 12/10/20 08:59 11/12/20 23:54 Donavan Acharya MD Nov 13, 2020 13:29
[2020-11-13] MEDS: cefTRIAXone 1 GM in D5W 55 ML IVPB SCH (14:27)
--- NOTE | 2020-11-13 15:30 | NUR ---
NURSE NOTES: Patient with orders to be discharged to [facility] to continue atb tx x5 days. Patient awake, alert, and oriented x4. Seen lying in bed currently on room air no s/sx of SOB/Distress, no c/o any pain or discomfort. Discharge documentation prepared, discharge teachings given to patient and family. No skin issues on patient. Left IV site on patient per MD request. ID band removed. All belongings accounted for. Patient picked up by 2 ambulance personnel and left unit in stable condition.
--- NOTE | 2020-11-17 14:00 | Discharge Summary ---
Discharge Summary Discharge Summary _ Date of admission: 11/10/2020 Date of discharge: 11/13/[address] Ventura History of Present Illness and Brief Hospital Course Ms. Mayito Guerrero is a 70-year-old female with past medical history of hypertension, hyperlipidemia, and cholelithiasis, who presented to the ED for evaluation of epigastric and right upper quadrant abdominal pain. Patient reported that she had had multiple bouts of biliary colic in the past that were usually controlled with [id number] pain medication. Patient patient denied history of cholecystectomy. Patient reported taking pain medication for several days without any relief. She was evaluated with an abdominal ultrasound which revealed multiple small gallstones in the neck with minimal wall thickening. Ruano sign was negative. She was given a dose of Zosyn in the ER and was admitted to the hospital for further management. A follow-up HIDA scan was negative. A follow-up abdominal CT showed mild wall thickening of the gastric antrum and first and second portions of the duodenum that could indicate gastritis/duodenitis or peptic ulcer disease. Cholelithiasis was demonstrated as previously reported in the abdominal ultrasound result. There was no indication for acute surgical intervention. Her LFTs were normal. She was originally scheduled for endoscopy which was later canceled due to stable H&H and bradycardia. The patient was instructed to follow-up with a surgeon as an outpatient for elective cholecystectomy. Patient was medically stable for discharge on 11/13/2020 and was discharged back to [facility]F. Consultants: Infectious disease Dr. Acharya Surgery Dr. Collins Pain management [facility] Dr. Brian Discharge Condition Improved and stable Final diagnoses Cholecystitis Biliary colic and cholelithiasis Hypertension Hyperlipidemia Gastritis/duodenitis History of gastric ulcer Anemia I have been assigned to dictate discharge summary for this account. I was not involved in the patient's management Ar Gomez Nov 17, 2020 14:00
== END 2020-11-13 15:30 | DRG 445 ==
LOC: EMR 02:03 → 4E 03:38 → EDBEDREQ 03:50 → 4E 07:09 → 2E 11-12 16:20
DX: K80.12 Calculus of gallbladder with acute and chronic cholecystitis without obstruction (principal); N39.0 Urinary tract infection, site not specified; I10 Essential (primary) hypertension; E78.5 Hyperlipidemia, unspecified; K29.70 Gastritis, unspecified, without bleeding; K29.80 Duodenitis without bleeding; D64.9 Anemia, unspecified
CPT/HCPCS: 36415; 74176; 76700; 78266; 80053; 81003; 82270; 83690; 84484; 85025; 87086; 93005; 93970; 96361; 96365; 96375; 99285; J2405; J7030

== ENCOUNTER 2020-12-15 10:18 | Outpatient (CLI) | payer MEDICARE, MEDICAID ==
[~2020-12-15 10:18] MED LIST changes: +AMLODIPINE BESY10 MG ORAL; +ATORVASTATIN CA20 MG ORAL; +FOSAMAX70 MG ORAL; +HYDROCHLOROTH12.5 MG ORAL; +LISINOPRIL10 MG ORAL; +MAGNESIUM OXID400 M1 ORAL; +ZOLOFT100 MG ORAL
[2020-12-15 10:52] VITALS: BP 126/57
== END 2020-12-15 13:03 | disposition home or self-care (01) ==
LOC: PAN 10:18
DX: R10.9 Unspecified abdominal pain (principal)
CPT/HCPCS: 99203